=== PATIENT | female | born 1970 | race Caucasian/White ===

== ENCOUNTER → 2018-06-18 07:41 | Outpatient (CLI) | payer BC, SELFPAY ==
--- NOTE | 2018-06-18 07:46 | BI_ITS ---
MAMMOGRAPHY - BILATERAL SCREENING REASON FOR EXAM: Female, 47 years old. Routine annual screening examination. PERTINENT HISTORY: Non-contributory. TECHNIQUE: Digital bilateral breast deborah (3D mammographic acquisition) in the CC and MLO projections. 2-D mediolateral oblique (MLO) and craniocaudad (CC) views of both breasts were obtained. CAD: Full Field Digital Mammography with Computer Added Detection was performed. COMPARISON: Comparison is made with prior study dated May 14, 2017. FINDINGS: Breast Composition: The breasts are heterogeneously dense, which may obscure small masses. There are no dominant masses or suspicious calcifications. Stable small bilateral axillary lymph nodes. No other significant abnormalities are identified. There has been no significant change since the prior study. BI/SCREENING MAMM (CAD), BILAT IMPRESSION: Stable bilateral screening mammogram. Yearly follow-up mammogram recommended. (A) ASSESSMENT CATEGORY: BIRADS Category 2: Benign. A letter regarding these results will be sent to the patient by the facility within 30 days. Approximately 10% of breast cancers are not detected by mammography. A normal mammogram should not delay biopsy of a clinically suspicious abnormality. [id number] Electronically Signed: Alphonso Macdonald MD at 9:17 EST , Service support ,
== END ==
PROVIDERS: Referring Provider Nurse Practitioner Women's Health; Visit Provider Nurse Practitioner Women's Health
DX: Z12.31 Encounter for screening mammogram for malignant neoplasm of breast (principal)
CPT/HCPCS: 77063; 77067

== ENCOUNTER → 2019-06-30 08:03 | Outpatient (CLI) | payer BC, SELFPAY ==
[2018-06-24 13:24] VITALS: BMI 22.6
--- NOTE | 2019-06-30 08:04 | BI_ITS ---
MAMMOGRAPHY - BILATERAL SCREENING REASON FOR EXAM: Female, 48 years old. Routine annual screening examination. PERTINENT HISTORY: Non-contributory. TECHNIQUE: Digital bilateral breast suly (3D mammographic acquisition) in the CC and MLO projections. 2-D mediolateral oblique (MLO) and craniocaudad (CC) views of both breasts were obtained. CAD: Full Field Digital Mammography with Computer Added Detection was performed. COMPARISON: Comparison is made with prior examination dated June 18, 2018 and May 14, 2017. FINDINGS: Breast Composition: The breasts are heterogeneously dense, which may obscure small masses. There are no dominant masses or suspicious calcifications. No other significant abnormalities are identified. There has been no significant change since the prior study. BI/SCREEN MAMM (CAD) W/SULY BILAT IMPRESSION: Stable bilateral screening mammogram. Yearly follow-up mammogram recommended. (A) ASSESSMENT CATEGORY: BIRADS Category 1: Negative. A letter regarding these results will be sent to the patient by the facility within 30 days. Approximately 10% of breast cancers are not detected by mammography. A normal mammogram should not delay biopsy of a clinically suspicious abnormality. [id number] Electronically Signed: Alphonso Macdonald, at 9:27 EST , Service support ,
== END ==
PROVIDERS: PCP Family Medicine; Referring Provider Nurse Practitioner Women's Health; Visit Provider Nurse Practitioner Women's Health
DX: Z12.31 Encounter for screening mammogram for malignant neoplasm of breast (principal)
CPT/HCPCS: 77063; 77067

== ENCOUNTER → 2020-07-12 13:04 | Outpatient (CLI) | payer BC, SELFPAY ==
[2019-06-30 08:37] VITALS: BMI 22.6
--- NOTE | 2020-07-12 13:06 | BI_ITS ---
MAMMOGRAPHY - BILATERAL SCREENING REASON FOR EXAM: Female, 49 years old. Routine annual screening examination. PERTINENT HISTORY: Non-contributory. Occasional bilateral nipple tenderness and discharge. TECHNIQUE: Digital bilateral breast suly (3D mammographic acquisition) in the CC and MLO projections. 2-D mediolateral oblique (MLO) and craniocaudad (CC) views of both breasts were obtained. CAD: Full Field Digital Mammography with Computer Added Detection was performed. COMPARISON: Comparison is made with prior examination of 06/30/2019 and 06/18/2018. FINDINGS: Breast Composition: The breasts are heterogeneously dense, which may obscure small masses. There are no dominant masses or suspicious calcifications. Stable small benign appearing bilateral axillary lymph nodes. No other significant abnormalities are identified. There has been no significant change since the prior study. BI/SCRN MAMM (CAD)W/SULY BILAT IMPRESSION: Stable bilateral screening mammogram. Yearly follow-up mammogram recommended. (A) ASSESSMENT CATEGORY: BIRADS Category 2: Benign. A letter regarding these results will be sent to the patient by the facility within 30 days. Approximately 10% of breast cancers are not detected by mammography. A normal mammogram should not delay biopsy of a clinically suspicious abnormality. [id number] Electronically Signed: Alphonso Macdonald MD at 14:12 EST , Service support ,
== END ==
PROVIDERS: PCP Family Medicine; Referring Provider Nurse Practitioner Women's Health; Visit Provider Nurse Practitioner Women's Health
DX: Z12.31 Encounter for screening mammogram for malignant neoplasm of breast (principal)
CPT/HCPCS: 77063; 77067

== ENCOUNTER → 2021-04-19 | Outpatient (CLI) | payer BC, SELFPAY | END | disposition home or self-care (01) | LOC: LABSPEC 09:40 | PROVIDERS: PCP Family Medicine; Referring Provider Physician Assistant; Visit Provider Physician Assistant | DX: Z11.52 Encounter for screening for COVID-19 (principal) | CPT/HCPCS: 87635; U0005; U0003 ==

== ENCOUNTER → 2021-04-30 | Outpatient (CLI) | payer BC, SELFPAY | END | disposition home or self-care (01) | LOC: LABSPEC 10:04 | PROVIDERS: PCP Family Medicine; Visit Provider Physician Assistant Surgical | DX: U07.1 COVID-19 (principal) | CPT/HCPCS: 87635; U0005; U0003 ==

== ENCOUNTER 2021-07-18 10:14 | Outpatient (CLI) | payer BC, SELFPAY ==
--- NOTE | 2021-07-18 10:16 | BI_ITS ---
MAMMOGRAPHY - BILATERAL SCREENING REASON FOR EXAM: Female, 50 years old. Routine annual screening examination. PERTINENT HISTORY: Non-contributory. History of bilateral nipple discharge. TECHNIQUE: Digital bilateral breast suly (3D mammographic acquisition) in the CC and MLO projections. 2-D mediolateral oblique (MLO) and craniocaudad (CC) views of both breasts were obtained. CAD: Full Field Digital Mammography with Computer Added Detection was performed. COMPARISON: None. Baseline examination. FINDINGS: Breast Composition: The breasts are heterogeneously dense, which may obscure small masses. There are no dominant masses or suspicious calcifications. No other significant abnormalities are identified. BI/SCRN MAMM (CAD)W/SULY BILAT IMPRESSION: Negative screening mammogram. With the patient''s history of bilateral nipple discharge, targeted ultrasound of both retroareolar regions is recommended. ASSESSMENT CATEGORY: BIRADS Category 0: Incomplete. Need additional imaging evaluation. A letter regarding these results will be sent to the patient by the facility within 30 days. Approximately 10% of breast cancers are not detected by mammography. A normal mammogram should not delay biopsy of a clinically suspicious abnormality. [id number] Electronically Signed: Alphonso Macdonald MD at 11:07 EST ,
== END 2021-07-18 23:59 | disposition home or self-care (01) ==
LOC: OPBI 10:14
PROVIDERS: PCP Family Medicine; Visit Provider Nurse Practitioner Women's Health
DX: Z12.31 Encounter for screening mammogram for malignant neoplasm of breast (principal)
CPT/HCPCS: 77063; 77067

== ENCOUNTER 2021-07-25 14:03 | Outpatient (CLI) | payer BC, SELFPAY ==
--- NOTE | 2021-07-25 14:10 | US_ITS ---
STUDY: ULTRASOUND BREAST - RIGHT REASON FOR EXAM: Female, 50 years old. Nipple discharge TECHNIQUE: Axial and longitudinal images of the RIGHT breast were performed with a high resolution ultrasound transducer. # OF IMAGES: 44 COMPARISON: Screening mammogram 07/18/2021 FINDINGS: RIGHT Breast: Heterogeneous background echotexture. Multiple longitudinal and transverse ultrasound images of the retroareolar right breast failed to demonstrate a discrete solid or cystic mass or dilated ducts.: IMPRESSION: Normal right breast ultrasound. If nipple discharge is bloody, galactogram is indicated. ASSESSMENT CATEGORY: BIRADS Category 1: Negative. A letter regarding these results will be sent to the patient by the facility within 30 days. Electronically Signed: Tom Sanders MD at 16:23 EDT , STUDY: ULTRASOUND BREAST - LEFT REASON FOR EXAM: Female, 50 years old. Nipple discharge TECHNIQUE: Axial and longitudinal images of the LEFT breast were performed with a high resolution ultrasound transducer. # OF IMAGES: 44 COMPARISON: Screening mammogram 07/18/2021 FINDINGS: LEFT Breast: Heterogeneous background echotexture. Multiple additional transverse ultrasound images of the retroareolar left breast fail to demonstrate a discrete solid or cystic mass or dilated ducts.: US/Breast Limited Unilateral IMPRESSION: Normal left breast ultrasound. If nipple discharge is bloody, galactogram is indicated. ASSESSMENT CATEGORY: BIRADS Category 1: Negative. A letter regarding these results will be sent to the patient by the facility within 30 days. Electronically Signed: Tom Sanders MD at 16:23 EDT ,
== END 2021-07-25 23:59 | disposition home or self-care (01) ==
PROVIDERS: PCP Family Medicine; Referring Provider Obstetrics & Gynecology; Visit Provider Obstetrics & Gynecology
DX: N64.52 Nipple discharge (principal)
CPT/HCPCS: 76642

== ENCOUNTER 2021-07-30 07:43 | Outpatient (CLI) | payer BC, SELFPAY ==
[2021-07-30 07:56] LABS: Absolute Lymphocyte Count 1.93 X10^3/uL (0.83-4.51); Absolute Neutrophil Count 3.6 X10^3/uL (2.0-7.7); Basophil# 0.03 X10^3/uL; Basophil% 0.5 % (0-1); Eosinophil# 0.19 X10^3/uL; Eosinophils% 2.9 % (0-5); Hematocrit 41.1 % (37-47); Lymphocyte # 1.93 X10^3/ul (0.83-4.51); Lymphocyte % 29.8 % (19-41); Mean Corp Hgb Conc 34.1 g/dL (32-36); Mean Corpuscular Hgb 29.5 pg (27.0-32.0); Mean Corpuscular Volume 86.7 fL (81-99); Mean Platelet Vol. 9.3 fl (6.2-12.0); Monocyte# 0.68 X10^3/uL; Monocyte% 10.5 % (0-10); NRBC Flagged by Analyzer 0 % (0-5); Neutrophil # 3.63 X10^3/uL (2.7-7.7); Platelet Count 304 K/mm3 (150-450); RBC Distribution Width CV 12.8 % (11.6-14.6); RBC Distribution Width SD 40.7 fl (35.1-43.9); Red Blood Count 4.74 M/mm3 (4.2-5.4); White Blood Count 6.5 K/mm3 (4.4-11.0)
[2021-07-30 08:40] LABS: Cholesterol 225 mg/dL (200); Glucose 89 mg/dL (74-106); High Density Lipoprotein 75 mg/dL; Prolactin 15.2 ng/mL; Thyroid Stim Hormone (TSH) 3.47 uIU/mL (0.358-3.74); Triglycerides 138 mg/dL; Very Low Density Lipoprotein 28 mg/dL (5-40)
[2021-07-30 08:42] LABS: Vitamin D,25 Hydroxy 37.4 ng/mL
== END 2021-07-30 23:59 | disposition home or self-care (01) ==
PROVIDERS: PCP Family Medicine; Referring Provider Nurse Practitioner Women's Health; Visit Provider Nurse Practitioner Women's Health
DX: R53.83 Other fatigue (principal); Z13.1 Encounter for screening for diabetes mellitus; Z13.220 Encounter for screening for lipoid disorders; Z87.59 Personal history of other complications of pregnancy, childbirth and the puerperium; Z13.29 Encounter for screening for other suspected endocrine disorder; Z13.21 Encounter for screening for nutritional disorder
CPT/HCPCS: 36415; 80061; 82306; 82947; 84146; 84443; 85025

== ENCOUNTER → 2022-10-09 | Outpatient (CLI) | payer BC, SELFPAY ==
--- NOTE | 2022-10-09 07:52 | BI_ITS ---
MAMMOGRAPHY - BILATERAL SCREENING REASON FOR EXAM: Female, 52 years old. Routine annual screening examination. PERTINENT HISTORY: Non-contributory. TECHNIQUE: Digital bilateral breast suly (3D mammographic acquisition) in the CC and MLO projections. 2-D mediolateral oblique (MLO) and craniocaudad (CC) views of both breasts were obtained. CAD: Full Field Digital Mammography with Computer Added Detection was performed. COMPARISON: Comparison is made with prior study dated July 18, 2021 and July 12, 2020. FINDINGS: Breast Composition: There are scattered areas of fibroglandular density. There are no dominant masses or suspicious calcifications. Stable small benign-appearing bilateral axillary lymph nodes. No other significant abnormalities are identified. There has been no significant change since the prior study. BI/SCRN MAMM (CAD)W/SULY BILAT IMPRESSION: Stable bilateral screening mammogram. Yearly follow-up mammogram recommended. (A) ASSESSMENT CATEGORY: BIRADS Category 2: Benign. A letter regarding these results will be sent to the patient by the facility within 30 days. Approximately 10% of breast cancers are not detected by mammography. A normal mammogram should not delay biopsy of a clinically suspicious abnormality. [id number] Electronically Signed: Alphonso Macdonald MD at 9:55 EDT ,
== END | disposition home or self-care (01) ==
LOC: OPBI 07:49
PROVIDERS: PCP Family Medicine; Referring Provider Nurse Practitioner Women's Health; Visit Provider Nurse Practitioner Women's Health
DX: Z12.31 Encounter for screening mammogram for malignant neoplasm of breast (principal)
CPT/HCPCS: 77063; 77067

== ENCOUNTER → 2022-11-20 | Outpatient (CLI) | payer BC, SELFPAY ==
[2022-11-22 22:07] LABS: HPV APTIMA, High Risk Negative (Negative)
== END | disposition home or self-care (01) ==
LOC: LABSPEC 11:29
PROVIDERS: PCP Family Medicine; Referring Provider Nurse Practitioner Women's Health; Visit Provider Nurse Practitioner Women's Health
DX: Z12.4 Encounter for screening for malignant neoplasm of cervix (principal)
CPT/HCPCS: 87624; 88175; G0145

== ENCOUNTER → 2022-11-25 | Outpatient (CLI) | payer BC, SELFPAY ==
[2022-11-25 09:01] LABS: Cholesterol 192 mg/dL (200); Estradiol < 11.0 pg/mL; Follicle Stimulating Hormone 44.2 mIU/mL; Glucose 92 mg/dL (74-106); High Density Lipoprotein 78 mg/dL; Thyroid Stim Hormone (TSH) 1.64 uIU/mL (0.358-3.74); Triglycerides 89 mg/dL; Very Low Density Lipoprotein 18 mg/dL (5-40)
== END | disposition home or self-care (01) ==
PROVIDERS: PCP Family Medicine; Referring Provider Nurse Practitioner Women's Health; Visit Provider Nurse Practitioner Women's Health
DX: N93.9 Abnormal uterine and vaginal bleeding, unspecified (principal); Z13.21 Encounter for screening for nutritional disorder; Z13.1 Encounter for screening for diabetes mellitus; Z13.29 Encounter for screening for other suspected endocrine disorder; Z13.220 Encounter for screening for lipoid disorders
CPT/HCPCS: 36415; 80061; 82306; 82670; 82947; 83001; 84443

== ENCOUNTER → 2023-11-28 | Outpatient (CLI) | payer BC, SELFPAY ==
--- NOTE | 2023-11-28 10:16 | BI_ITS ---
MAMMOGRAPHY - BILATERAL SCREENING REASON FOR EXAM: Female, 53 years old. Routine annual screening examination. PERTINENT HISTORY: Non-contributory. TECHNIQUE: Digital bilateral breast suly (3D mammographic acquisition) in the CC and MLO projections. 2-D mediolateral oblique (MLO) and craniocaudad (CC) views of both breasts were obtained. CAD: Full Field Digital Mammography with Computer Added Detection was performed. COMPARISON: Comparison is made with prior study dated October 09, 2022 and July 18, 2021. FINDINGS: Breast Composition: There are scattered areas of fibroglandular density. There are no dominant masses or suspicious calcifications. No other significant abnormalities are identified. There has been no significant change since the prior study. BI/SCRN MAMM (CAD)W/SULY BILAT IMPRESSION: Stable bilateral screening mammogram. Yearly follow-up mammogram recommended. (A) ASSESSMENT CATEGORY: BIRADS Category 1: Negative. A letter regarding these results will be sent to the patient by the facility within 30 days. Approximately 10% of breast cancers are not detected by mammography. A normal mammogram should not delay biopsy of a clinically suspicious abnormality. [id number] Electronically Signed: Alphonso Macdonald MD at 11:04 EDT ,
== END | disposition home or self-care (01) ==
LOC: OPBI 10:15
PROVIDERS: PCP Family Medicine; Referring Provider Nurse Practitioner Women's Health; Visit Provider Nurse Practitioner Women's Health
DX: Z12.31 Encounter for screening mammogram for malignant neoplasm of breast (principal)
CPT/HCPCS: 77063; 77067

== ENCOUNTER → 2023-12-23 | Outpatient (CLI) | payer BC, SELFPAY ==
[2023-12-23 12:12] LABS: Estradiol < 11.0 pg/mL; Follicle Stimulating Hormone 44.5 mIU/mL
== END | disposition home or self-care (01) ==
LOC: PAVLAB 09:20
PROVIDERS: PCP Family Medicine; Referring Provider Nurse Practitioner Women's Health; Visit Provider Nurse Practitioner Women's Health
DX: N95.1 Menopausal and female climacteric states (principal)
CPT/HCPCS: 36415; 82670; 83001

== ENCOUNTER → 2024-11-29 | Outpatient (CLI) | payer BC, SELFPAY ==
--- NOTE | 2024-11-29 07:30 | BI_ITS ---
EXAM: SCRN MAMM (CAD)W/SULY BILAT DATE: 11/29/2024 CLINICAL HISTORY: F, Age 54 y/o , SCREENING FOR BREAST CANCER TECHNIQUE: SCRN MAMM (CAD)W/SULY BILAT COMPARISON: Prior exam(s) dated 11/28/2023 and 10/09/2022. FINDINGS: TISSUE DENSITY: There are scattered areas of fibroglandular density. Bilateral Breast Mammographic Findings: There are no suspicious masses, suspicious cluster of microcalcifications, architectural distortion or secondary signs of malignancy identified in either breast. BI/SCRN MAMM (CAD)W/SULY BILAT IMPRESSION: Negative screening mammogram. OVERALL FINAL ASSESSMENT BI-RADS 1: NEGATIVE. RECOMMENDATION: Routine annual follow-up in 1 Year A letter with findings and recommendations will be mailed to the patient. Reading Location: [id number]
--- OUTSIDE RECORDS SUMMARY | 2024-11-29 07:31 | XMS RPT_ITS | CCD ---
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 Calixto Dexter Primary Care Provider [phone] Dr. Calixto Dexter Referring Provider Dr. Uriel Vila Attending Provider [phone] Eyal LEAD PONY RIDER, LEAD PONY RIDER-C Shu Attending Provider 1[facility] [phone] Un[address] Primary Care Provider Dr. Calixto Campos Primary Care Provider [phone] Dr. Calixto Dexter Referring Provider Eyal LEAD PONY RIDER, LEAD PONY RIDER-C Shu Attending Provider [phone] Unavailable Primary Care Provider Len Birch LEAD PONY RIDER, Shu Attending Unavailable Calixto Dexter Referring Unavailable Calixto Dexter Primary Care Unavailable Eyal LEAD PONY RIDER, Shu Attending Unavailable Calixto Dexter Primary Care Unavailable Eyal LEAD PONY RIDERShu Referring Unavailable Eyal LEAD PONY RIDER, Shu Referring Unavailable Eyal LEAD PONY RIDER, Shu Attending Unavailable Calixto Dexter Primary Care Unavailable Medications Current Medications Medication Drug Class(es) Dates Sig (Normalized) Sig (Original) Desog-E.Estradiol/ E.Estradiol (20 sources) Progestin, Estrogen Start: 09-25-2022 take 0.15 tablet by mouth once daily Desog-E.Estradiol /E.Estradiol (Kariva (28)) 0.15-0.02 mgx21 /0.01 mg x 5 tablet Active 1 TABLET PO daily September 25, 2022 9:39am Start: 07-26-2021 End: 09-25-2022 take 0.15 tablet by mouth once daily Desog-E.Estradiol/E.Estradiol (Kariva (2 8)) 0.15-0.02 mgx21 /0.01 mg x 5 tablet Discontinued 1 TABLET PO daily July 26, 2021 8:27am September 25, 2022 9:39am Start: 07-26-2021 take 0.15 tablet by mouth once daily Desog-E.Estradiol/E.Estradiol (Kariva (2 8)) 0.15-0.02 mgx21 /0.01 mg x 5 tablet Active 1 TABLET PO daily July 26, 2021 8:27am Start: 07-12-2020 End: 07-26-2021 take 0.15 tablet by mouth once daily Desog-E.Estradiol/E.Estradiol (Kariva (2 8)) 0.15-0.02 mgx21 /0.01 mg x 5 tablet Discontinued 1 TABLET PO daily July 12, 2020 3:01pm July 26, 2021 8:27am Start: 06-30-2019 End: 07-12-2020 take 0.15 tablet by mouth once daily Desog-E.Estradiol/E.Estradiol (Kariva (2 8)) 0.15-0.02 mgx21 /0.01 mg x 5 tablet Discontinued 1 TABLET PO daily June 30, 2019 9:54am July 12, 2020 3:01pm Start: 06-24-2018 End: 06-30-2019 take 0.15 tablet by mouth once daily Desog-E.Estradiol/E.Estradiol (Kariva (2 8)) 0.15-0.02 mgx21 /0.01 mg x 5 tablet Discontinued 1 TABLET PO daily June 24, 2018 2:26pm June 30, 2019 9:54am Start: 06-11-2017 End: 06-24-2018 take 0.15 tablet by mouth once daily Desog-E.Estradiol/E.Estradiol (Kariva (2 8)) 0.15-0.02 mgx21 /0.01 mg x 5 tablet Discontinued 1 TABLET PO daily June 11, 2017 12:59pm June 24, 2018 2:27pm Start: 05-21-2017 End: 06-11-2017 take 0.15 tablet by mouth once daily Desog-E.Estradiol/E.Estradiol (Kariva (2 8)) 0.15-0.02 mgx21 /0.01 mg x 5 tablet Discontinued 1 TABLET PO daily 84 May 21, 2017 12:11pm June 11, 2017 12:59pm Start: 05-21-2017 End: 05-21-2017 take 0.15 tablet by mouth once daily Desog-E.Estradiol/E.Estradiol (Kariva (2 8)) 0.15-0.02 mgx21 /0.01 mg x 5 tablet Discontinued 1 TABLET PO daily May 21, 2017 11:58am May 21, 2017 12:12pm Start: 05-21-2017 End: 05-21-2017 take 0.15 tablet by mouth once daily Desog-E.Estradiol/E.Estradiol (Kariva (2 8)) 0.15-0.02 mgx21 /0.01 mg x 5 tablet Discontinued 1 TABLET PO daily May 21, 2017 1:00am May 21, 2017 12:12pm Start: 03-27-2016 take 1 tablet by choco once daily Desogestrel-Ethinyl Estradiol 0.15-0.02 mgx21 /0.01 mg x 5 per tablet Indications: General counseling for prescription of oral contraceptives Take 1 tablet by mouth once daily. 3 Package 4 03/27/2016 Active Comment on above: Take 1 tablet by choco th once daily. doxycycline monohydrate 100 mg oral capsule (2 sources) Tetracycline-class Drug Start: 05-28-19 take 1 capsule by mouth twice daily at mealtime doxycycline monohydrate (MONODOX) 100 mg capsule take 1 capsule by mouth twice a day with food 05/28/2023 Active mupirocin 0.02 mg/mg topical ointment (1 source) RNA Synthetase Inhibitor Antibacterial Start: 07-06-19 End: 07-17-19 mupirocin (BACTROBAN) 2 % ointment Indications: Rash Apply to affected area twice daily for 10 days. 15 g 0 07/06/2022 07/16/2022 Active Comment on above: Apply to affected ar ea twice daily for 10 days. predniSONE 10 mg oral tablet (3 sources) Start: 09-13-19 predniSONE (DELTASONE) 10 mg tablet Indications: Poison liam dermatitis Take 4 tabs daily x5 days, then 2 tabs daily for 5 days, then 1 tab daily for 5 days. 35 tablet 09/13/2023 Active Start: 09-16-2022 End: 09-21-2022 take 2 tablets by mouth once daily predniSONE (DELTASONE) 20 mg tablet Take 2 tablets by mouth once daily for 5 days. 10 tablet 0 09/16/2022 09/21/2022 Active Comment on above: Take 2 tablets by mo ut once daily for 5 days. Completed/Discontinued Medications Medication Drug Class(es) Dates Sig (Normalized) Sig (Original) Drug Treatment Unknown - unknown (2 sources) No information available. Problems Active Problems Problem Classification Problem Date Documented Date Episodic/Chronic E Codes: Fall (1 source) Fall; Translations: [Unspecified fall, initial encounter] 03-26-2021 Episodic Menopausal disorders (1 source) Menopausal and female climacteric states; Translations: [Menopausal and female climacteric states] Onset: 01-19-2024 Chronic Menstrual disorders (4 sources) Menometrorrhagia; Translations: [Excessive and frequent menstruation with irregular cycle] Chronic Other female genital disorders (2 sources) Abnormal uterine and vaginal bleeding, unspecified; Translations: [Unspecified disorders of menstruation and other abnormal bleeding from female genital tract] 11-20-2022 Chronic Other screening for suspected conditions (not mental disorders or infectious disease) (1 source) Encounter for screening mammogram for malignant neoplasm of breast; Translations: [Encounter for screening mammogram for malignant neoplasm of breast] Onset: 11-25-2024 Episodic Other skin disorders (1 source) Eruption; Translations: [Rash and other nonspecific skin eruption] Episodic Other upper respiratory infections (4 sources) Sore throat symptom; Translations: [Acute pharyngitis, unspecified] Episodic Residual codes; unclassified (3 sources) H/O: endocrine disorder; Translations: [Personal history of other complications of , childbirth and the puerperium] 07-26-2021 Episodic Residual codes; unclassified (1 source) Personal history of other complications of , childbirth and the puerperium; Translations: [Personal history of other endocrine, metabolic, and immunity disorders] Episodic Spondylosis; intervertebral disc disorders; other back problems (1 source) Pain in the coccyx; Translations: [Sacrococcygeal disorders, not elsewhere classified] 03-26-2021 Episodic Unclassified (2 sources) Screening mammography ; Translations: [Encounter for screening mammogram for malignant neoplasm of breast] Onset: 04-07-2017 04-07-2017 Past or Other Problems Problem Classification Problem Date Documented Da te Episodic/Chronic Allergic reactions (6 sources) Radiation-induced dermatosis; Translations: [Other skin changes due to chronic exposure to nonionizing radiation] Onset: 10-30-2006 10-30-2006 Episodic Neoplasms of unspecified nature or uncertain behavior (5 sources) Neoplasm of uncertain behavior of skin; Translations: [Neoplasm of uncertain behavior of skin] Onset: 10-30-2006 10-30-2006 Episodic Other and unspecified benign neoplasm (5 sources) Benign neoplasm of skin of trunk; Translations: [Other benign neoplasm of skin of trunk] Onset: 10-30-2006 10-30-2006 Episodic Other skin disorders (5 sources) Disorder of skin pigmentation; Translations: [Disorder of pigmentation, unspecified] Onset: 10-30-2006 10-30-2006 Episodic Other skin disorders (5 sources) Seborrheic keratosis; Translations: [Other seborrheic keratosis] Onset: 10-30-2006 10-30-2006 Episodic Results Test Name Value Interpretation Reference Range Facility [facility] 03-04-2024 CNOV Office Visit (UCWSTR) PHILIPROSETTA L ([id number]) 1970 F Date Time Provider Department 03/04/24 11:30 AM MO NIÑO [facility] During your visit today, we recorded the following information about you: Temperature Pulse Respiration Blood pressure 97.6 degrees 100/minute 18/minute 130/90 Weight 61.8 kg Mo Niño APRN.CNP 03/04/2024 12:06 PM Signed SUBJECTIVE: Rosetta Palacios is a 53 year old female. Who presents today with sore throat body fatigue aches congestion started on Friday. She has not had a fever. She has taken mucinex and tylenol for the symptoms. She has not been exposed to anyone who is sick. She would like strep testing today. She has declined viral testing today as last time she received a large bill from her insurance HPI PAST MEDICAL HISTORY Diagnosis Date Abnormal glandular Papanicolaou smear of cervix 1993, 1994 ASCUS FAMILY HISTORY Problem Relation Age of Onset Hypertension Mother Thyroid Mother Diabetes Mother other (aortic aneurysn) Mother other (diverticulitis) Mother removed part of colon Hypertension Brother Stroke Maternal Grandmother brain aneurysm Hypertension Maternal Grandfather Social History Tobacco Use Smoking status: Never Smokeless tobacco: Never Substance Use Topics Alcohol use: No Drug use: No ALLERGIES No Known Allergies Current Outpatient Medications Medication Sig Dispense Refill Desogestrel-Ethinyl Estradiol 0.15-0.02 mgx21 /0.01 mg x 5 per tablet Take 1 tablet by mouth once daily. 3 Package 4 predniSONE (DELTASONE) 10 mg tablet Take 4 tabs daily x5 days, then 2 tabs daily for 5 days, then 1 tab daily for 5 days. (Patient not taking: Reported on 03/04/2024) 35 tablet 0 doxycycline monohydrate (MONODOX) 100 mg capsule take 1 capsule by mouth twice a day with food (Patient not taking: Reported on 03/04/2024) No current facility-administere d medications for this visit. OBJECTIVE: BP 130/90 Pulse 100 Temp 36.4 ?C (97.6 ?F) Resp 18 Wt 61.8 kg (136 lb 3.9 oz) LMP 07/30/2023 (Exact Date) SpO2 99% BMI 22.33 kg/m? ROS: All systems reviewed and are otherwise negative Constitutional: Well developed, well nourished, AANDO X3. ENT: Head is atraumatic, airway patent, mucosal membranes moist, pink, no exudate, no peritonsillar abscess, mercedes TM clear with no signs of infection Neck: full ROM, no meningeal signs Cardiac: heart tones regular rate and rhythm Respiratory: lung CTA respiration even and unlabored : no CVA tenderness MS: moves all extremities, no deformities noted Neuro: GCS 15 no focal deficits Skin: warm and dry with out rash, lesion or ecchymosis on exposed skin Psych: alert appropriate, speech clear Diagnostic testing: Strep testing Differential Diagnosis Strep Throat, Viral Pharyngitis, Peritonsillar Abscess, meningitis, bacterial pneumonia, sinusitis, allergic rhinitis, and bronchitis to name a few. MDM: Patient presented to the [facility] today for strep testing. A strep test was obtained and was NEGATIVE. Rosetta Palacios will be treated for viral pharyngitis. As this is not a bacterial infection, antibiotics are not indicated. At this time I do not suspect a serious underlying emergent process. I considered, but think unlikely, dangerous causes of this patient?s symptoms to include Peritonsillar abscess and meningitis. Patient is nontoxic appearing and not in need of emergent medical intervention. Vital signs were evaluated and found to be within normal limits. We have discussed over the counter medications to use for their symptoms. They may take Motrin and Tylenol for pain, body aches and fever. They will follow-up with their family doctor in the next 2-3 days. If symptoms worsen they will go straight to the emergency department for further evaluation and treatment. They voiced understanding of the plan of care and are in agreement. ASSESSMENT/PLAN: 1. Sore throat - ICD9: 462, ICD10: J02.9 (primary diagnosis) - STREP A MOLECULAR (POC) 2. Viral pharyngitis - ICD9: 462, ICD10: J02.9 Mo Niño APRN.BUILD MANAGER Allergies As of Date: 03/04/2024 (No Known Allergies) Date Reviewed: 03/04/2024 Reviewed by: Ladonna Salazar MA - Fully Assessed Reason for Visit: Sore Throat [200] Cmt: Bodyaches, SAUCEDA, cough x4 days Primary Visit Diagnosis:Sore throat [J02.9] Other Visit Diagnosis:Viral pharyngitis [J02.9] Order(s):STREP A MOLECULAR (POC) [[id number]] Order #: [id number]. #:[id number] Prescriptions as of 03/04/2024 - predniSONE (DELTASONE) 10 mg tablet Take 4 tabs daily x5 days, then 2 tabs daily for 5 days, then 1 tab daily for 5 days. - doxycycline monohydrate (MONODOX) 100 mg capsule take 1 capsule by mouth twice a day with food - Desogestrel-Ethinyl Estradiol 0.15-0.02 mgx21 /0.01 mg x 5 per tablet Take 1 table (more content not included)... Normal [facility] STREP A MOLECULAR (POC)on Procedural Control Valid [facility] Strep A (POCT) Negative Negative [facility] Estradiolon 12-23-2023 ESTRADIOL < 11.0 Normal [facility] Comment on above: Result Comment: NORM AL REFERENCE RANGES FEMALE FOLLICULAR 21.4 - 164.8 pg/mL MID-CYCLE PEAK 49.9 - 367.2 pg/mL LUTEAL 40.2 - 259.0 pg/mL POST-MENOPAUSAL ON MHT <11.0 - 462.1 pg/mL NOT ON MHT <11.0 - 58.3 pg/mL MALE <11.0 - 52.5 pg/mL NOTE: [facility] HAS CONFIRMED THE DRUG FULVETRANT (FASLODEX) MAY CAUSE FALSELY ELEVATED ESTRADIOL RESULTS WHEN USING THIS TEST METHOD. IF PATIENT IS TAKING FULVESTRANT AN ALTERNATIVE METHOD SHOULD BE USED TO DETERMINE ESTRADIOL CONCENTRATION. Performed By: #### L 3100.5125, [id number] #### [facility] [address] [place], [place], [address] Follicle Stimulating Hormone on 12-23-2023 FSH 44.5 mIU/mL Normal [facility] Comment on above: Result Comment: NORMAL REFERENCE RANGES FEMALE FOLLICULAR 2.3 - 12.6 mIU/mL MID-CYCLE PEAK 5.2 - 17.5 mIU/mL LUTEAL 1.7 - 12.9 mIU/mL POST-MENOPAUSAL ON MHT 5.9 - 72.8 mIU/mL NOT ON MHT 12.7 - 132.2 mlU/mL MALE 0.7 - 10.8 mIU/mL Performed By: #### L 3100.5125, [id number] #### [facility] [address] [place], [place], [address] Resident Surgeon Office Visit Reporton 12-02-2023 Resident Surgeon Office Visit Report [facility] 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 Required: No Is patient in pain?: No Allergies No Known Allergies Allergy (Verified 12/02/23 09:13) Medications ???Medication ???Instructions ???Recorded ???Confirmed ???Type desogestrel-e.estrad iol 0.15 1 tab PO DAILY #84 TABLETS 11/20/23 12/02/23 Rx mg-0.02 mg(21)/e.estrad 0.01 mg(5) tablet (Kariva (28)) Is last menstrual period known: Yes Last Menstrual Period: 11/20/23 Post menopausal: No Patient : No : No [facility] Medical History (Updated 12/02/23 @ 10:03 by Shu Birch NP, TORIE) History of galactorrhea Atypical nevus Abnormal Pap smear of cervix FHx: migraine headaches Surgical History H/O knee surgery Family History Mother Diabetes Social History current occupational status: employed 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 Date Name GA/Weeks Outcome Route Bth Weight Gen Labor Lgth Anesthesia Del Locatn Provider JOSE ROBERTO Unknown 03/05/1992 Juan Jose Female [facility] brown Unknown 09/03/1996 Mike [facility] Male Unknown 01/03/2005 [facility] Female HPI Encounter for routine gynecological examination Details: ROSETTA PALACIOS is a 53 year old who presents for annual exam. Light spotting occasionally with OCP. Labs were not postmenopausal last year. Last PAP: 2022 History of abnormal PAP: no Last mammogram: 11/2023 History of abnormal mammogram: no Colon cancer screening: none Female Reproductive History Last Menstrual Period: 11/20/23 Questions: metorrhagia: No, sexually active: Yes, dyspareunia: No and PCB: No ROS Const Constitutional: Denies fatigue, weight gain or weight loss Cardio Card: Denies chest pain Resp Resp: Denies cough or dyspnea on exertion GI GI: Denies abdominal pain, bloating, change in stool character, constipation or vomiting : Reports as per HPI; Denies difficulty voiding, pelvic pain, urinary frequency, urinary incontinence, urinary urgency, vaginal discharge or vaginal pruritus Exam Const General: cooperative, healthy appearing, no acute distress and well developed Orientation: alert, oriented to person and oriented to place HENTX Head: normal to inspection Neck Neck: normal visual inspection Thyroid: thyroid normal Lymphatic: no lymphadenopathy noted Chest Breast inspection: normal inspection of the breasts and normal inspection of the axillae Breast palpation: normal palpation of the breasts, normal palpation of the axillae and no axillary lymphadenopathy Resp Effort Inspection: normal respiratory effort GI Palpation: soft, no masses and nontender Rectal Exam: deferred External Female Exam: normal external appearance and normal appearance of the urethra Urethra: normal appearance of the urethra and normal palpation Speculum Exam - Vagina: normal appearance of the vagina and normal vaginal discharge Speculum Exam - Cervix: normal appearance of the cervix Bimanual Exam- Vagina Uterus: normal bimanual exam, uterine size normal, uterine shape normal and non-tender Bimanual Exam- Adnexa, other: normal adnexae, no masses, normal and non-tender Pelvic Support: normal Neuro General: patient alert and patient oriented x3 Psych Affect: normal affect Coding Level of Care Code Off vis,est,prev 40-64yrs Diagnoses Encounter for gynecological examination with abnormal finding Z01.411 Gynecological examination findings: abnormal findings PRESENT Climacteric N95.1 Assessment and Plan Assessment and Plan (1) Encounter for routine gynecological examination: Qualifiers: Gynecological examination findings: abnormal findings PRESENT Qualified Code(s) (more content not included)... Normal [facility] CNOVon 09-13-2023 CNOV Office Visit (UCWSTR) ROSETTA PALACIOS ([id number]) 1970 F Date Time Provider Department 09/13/23 9:45 AM KATIE VELEZ WS During your visit today, we recorded the following information about you: Temperature Pulse Respiration Blood pressure 97.4 degrees 87/minute 18/minute 122/89 Weight 59.7 kg Katie Velez, RN PARALEGAL.BUILD MANAGER 09/13/2023 9:59 AM Signed This note was created using [employer]. Subjective Rosetta Palacios is a 53 year old female. HPI Pt developed a vesiclular rash that started about 5 days ago. She had been outside working in the [employer]. Review of Systems Constitutional: Negative for fatigue and fever. Skin: Positive for rash. Objective BP 122/89 Pulse 87 Temp 36.3 ?C (97.4 ?F) Resp 18 Wt 59.7 kg (131 lb 9.8 oz) LMP 07/30/2023 (Exact Date) SpO2 99% BMI 21.57 kg/m? Physical Exam Vitals and nursing note reviewed. Constitutional: General: She is not in acute distress. Appearance: Normal appearance. She is not ill-appearing. HENT: Head: Normocephalic. Eyes: Conjunctiva/sclera: Conjunctivae normal. Pulmonary: Effort: Pulmonary effort is normal. Musculoskeletal: General: Normal range of motion. Cervical back: Normal range of motion. Skin: General: Skin is warm and dry. Findings: Rash present. Comments: Scattered vesicular rash across the palmar aspect of the left forearm and palmar aspect of right wrist. Rash is not erythematous. Neurological: General: No focal deficit present. Mental Status: She is alert. Psychiatric: Mood and Affect: Mood normal. Behavior: Behavior normal. Assessment and Plan ASSESSMENT/PLAN: 1. Poison liam dermatitis - ICD9: 692.6, ICD10: L23.7 - Oral Steriod tx -Prednisone taper - discussed skin care of rash - follow up if symptoms persist or worsen. -Discussed the importance of thoroughly cleaning all clothing that she was wearing while working out in the [employer]. -Patient given a 15-day taper of prednisone. - PREDNISONE 10 MG TABLET Katie Velez APRN.CNP Allergies As of Date: 09/13/2023 (No Known Allergies) Date Reviewed: 09/13/2023 Reviewed by: Katie Velez APRN.CNP - Fully Assessed Reason for Visit: Rash [1087] Cmt: Widespread x4 days, possible poison liam Primary Visit Diagnosis:Poison liam dermatitis [L23.7] Order(s):predniSONE (DELTASONE) 10 mg tabletTake 4 tabs daily x5 days, then 2 tabs daily for 5 days, then 1 tab daily for 5 days.Disp: 35 tabletRfl: 0 Prescriptions as of 09/13/2023 - predniSONE (DELTASONE) 10 mg tablet Take 4 tabs daily x5 days, then 2 tabs daily for 5 days, then 1 tab daily for 5 days. - doxycycline monohydrate (MONODOX) 100 mg capsule take 1 capsule by mouth twice a day with food - Desogestrel-Ethinyl Estradiol 0.15-0.02 mgx21 /0.01 mg x 5 per tablet Take 1 tablet by mouth once daily. Problem List As Of Date 09/13/2023 Noted Resolved UNCERTAIN BEHAV NEOPL SKIN [D48.5] 10/30/2006 BENIGN HERACLIO SKIN TRUNK [D23.5] 10/30/2006 MELASMA///DYSCHROMIA OTHER [L81.9] 10/30/2006 CHR SOLAR SKIN DAMAGE NOS [L57.8] 10/30/2006 SEBORRHEIC KERATOSIS NOS [L82.1] 10/30/2006 Prescriptions ordered this encounter Disp Refills Start End PREDNISONE 10 MG TABLET 35 t* 0 09/13/2023 Sig: Take 4 tabs daily x5 days, then 2 tabs daily for 5 days, then 1 tab daily for 5 days. Encounter Status:Closed by KATIE VELEZ on 09/13/23 Normal [facility] CNOVon 08-07-2023 CNOV Office Visit (UCWSTR) ROSETTA PALACIOS ([id number]) 1970 F Date Time Provider Department 08/07/23 10:15 AM JERED BAXTER [facility] During your visit today, we recorded the following information about you: Temperature Pulse Respiration Blood pressure 98.5 degrees 105/minute 18/minute 120/83 Weight Last Period 57 kg 07/30/23 Jered Baxter APRN.BUILD MANAGER 08/07/2023 12:35 PM Signed Subjective HPI HPI Rosetta Palacios is a 52 year old female who presents today for CC of itchy tender rash on back. This started 2 weeks ago. Has tried otc medication for relief. Symptoms are worsened by nothing. Risk factors has hottub, does not use frequently but was in recently. Denies uri symptoms. .Patient presents with: Rash: On back x 1 week and worsening small red bumps all over PAST MEDICAL HISTORY Diagnosis Date Abnormal glandular Papanicolaou smear of cervix 1993, 1994 ASCUS PAST SURGICAL HISTORY Procedure Laterality Date ARTHROSCOPY KNEE DIAGNOSTIC W/WO SYNOVIAL BX SPX 2005 Arthroscopy, knee PAST SURGICAL HISTORY OF WISDOM TEETH EXTRACTION ALLERGIES Patient has no known allergies. MEDICATIONS doxycycline monohydrate (MONODOX) 100 mg capsule take 1 capsule by mouth twice a day with food Desogestrel-Ethinyl Estradiol 0.15-0.02 mgx21 /0.01 mg x 5 per tablet Take 1 tablet by mouth once daily. predniSONE (DELTASONE) 10 mg tablet Take 4 tabs daily for 3 days, then 2 tabs daily for 3 days, then 1 tab daily for 3 days with food. triamcinolone acetonide (KENALOG) 0.1 % cream Apply 1 application to affected area three times a day for 10 days. Apply sparingly to area for rash/itching. cephALEXin (KEFLEX) 500 mg capsule Take 1 capsule by mouth three times a day for 7 days. FAMILY HISTORY Problem Relation Age of Onset Hypertension Mother Thyroid Mother Diabetes Mother other (aortic aneurysn) Mother other (diverticulitis) Mother removed part of colon Hypertension Brother Stroke Maternal Grandmother brain aneurysm Hypertension Maternal Grandfather Social History Tobacco Use Smoking status: Never Smokeless tobacco: Never Substance Use Topics Alcohol use: No Drug use: No ROS Objective Blood pressure 120/83, pulse 105, temperature 36.9 ?C (98.5 ?F), resp. rate 18, weight 57 kg (125 lb 10.6 oz), last menstrual period 07/30/2023, SpO2 100%. Physical Exam Constitutional: General: She is not in acute distress. Appearance: She is not toxic-appearing or diaphoretic. HENT: Head: Normocephalic and atraumatic. Pulmonary: Effort: Pulmonary effort is normal. No accessory muscle usage or respiratory distress. Skin: Neurological: Mental Status: She is alert and oriented to person, place, and time. ASSESSMENT/PLAN: 1. Rash - ICD9: 782.1, ICD10: R21 Unclear etiology, cover with steroid and atb F/u with dermatology if s/s persist. - PREDNISONE 10 MG TABLET - TRIAMCINOLONE ACETONIDE 0.1 % TOPICAL CREAM - CEPHALEXIN 500 MG CAPSULE Jered Baxter APRN.BUILD MANAGER Allergies As of Date: 08/07/2023 (No Known Allergies) Date Reviewed: 08/07/2023 Reviewed by: Jered Baxter APRN.BUILD MANAGER - Fully Assessed Reason for Visit: Rash [1087] Cmt: On back x 1 week and worsening small red bumps all over Primary Visit Diagnosis:Rash [R21] Order(s):predniSONE (DELTASONE) 10 mg tabletTake 4 tabs daily for 3 days, then 2 tabs daily for 3 days, then 1 tab daily for 3 days with food.Disp: 21 tabletRfl: 0 triamcinolone acetonide (KENALOG) 0.1 % creamApply 1 application to affected area three times a day for 10 days. Apply sparingly to area for rash/itching.Disp: 80 gRfl: 0 cephALEXin (KEFLEX) 500 mg capsuleTake 1 capsule by mouth three times a day for 7 days.Disp: 21 capsuleRfl: 0 Prescriptions as of 08/07/2023 - doxycycline monohydrate (MONODOX) 100 mg capsule take 1 capsule by mouth twice a day with food - predniSONE (DELTASONE) 10 mg tablet Take 4 tabs daily for 3 days, then 2 tabs daily for 3 days, then 1 tab daily for 3 days with food. - triamcinolone acetonide (KENALOG) 0.1 % cream Apply 1 application to affected area three times a day for 10 days. Apply sparingly to area for rash/itching. - cephALEXin (KEFLEX) 500 mg capsule Take 1 capsule by mouth three times a day for 7 days. - Desogestrel-Ethinyl Estradiol 0.15-0.02 mgx21 /0.01 mg x 5 per tablet Take 1 tablet by mouth once daily. 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 Normal [facility] Small Basophil percentageOrdered B y: Shu Birch on 11-25-2022 Cholesterol [Mass/Vol] 192 mg/dL <200 [facility] Comment on above: <200 mg/dL Desirable 200-240 mg/dL Borderline >240 mg/dL High Risk Glucose [Mass/Vol] 92 mg/dL 74-106 [facility] Triglyceride [Mass/Vol] 89 mg/dL <199 [facility] Comment on above: The drugs N-Acetylcy steine and Metamizole may falsely depress this assay.Serum Triglycerides Reference Interval Normal <150 mg/dL Borderline high 150 - 199 mg/dL High 200 - 499 mg/dL Very High > or = 500 mg/dL No Panel InformationOrdered By: Shu Birch on 11-25-2022 Follicle Stimulating Hormone 44.2 mIU/mL [facility] Comment on above: NORMAL REFERENCE RAN GES FEMALE FOLLICULAR 2.3 - 12.6 mIU/mL MID-CYCLE PEAK 5.2 - 17.5 mIU/mL LUTEAL 1.7 - 12.9 mIU/mL POST-MENOPAUSAL ON MHT 5.9 - 72.8 mIU/mL NOT ON MHT 12.7 - 132.2 mlU/mL MALE 0.7 - 10.8 mIU/mL Thyroid Stimulating Hormone (TSH) 1.64 uIU/mL 0.358-3.74 [facility] Vitamin D 25-Hydroxy 58.0 ng/mL [facility] Comment on above: Vitamin D 25(OH) Sta tus Range Deficiency <20 ng/mL (50nmol/L) Insufficiency 20 - 30 ng/mL (50 - 75 nmol/L) Sufficiency 30 - 100 ng/mL (75 - 250 nmol/L) Toxicity >100 ng/mL (>250 nmol/L) Serum or plasma cholesterol in HDL measurement (mass/volume)Ordered By: Shu Birch on 11-25-2022 Cholesterol in HDL [Mass/Vol] 78 mg/dL >40 [facility] Comment on above: The drugs N-Acetylcy steine and Metamizole may falsely depress this assay. Reference Range HDL <40 mg/dL Low HDL Cholesterol HDL >or= 60 mg/dL High HDL Cholesterol Serum or plasma cholesterol in VLDL measurement (mass/volume)Ordered By: Shu Birch on 11-25-2022 Cholesterol in VLDL [Mass/Vol] 18 mg/dL 5-40 [facility] Serum or plasma estradiol (E 2) measurement (mass/volume)Ordered By: Shu Birch on 11-25-2022 E2 [Mass/Vol] pg/mL [facility] Comment on above: NORMAL REFERENCE RAN GES FEMALE FOLLICULAR 21.4 - 164.8 pg/mL MID-CYCLE PEAK 49.9 - 367.2 pg/mL LUTEAL 40.2 - 259.0 pg/mL POST-MENOPAUSAL ON MHT <11.0 - 462.1 pg/mL NOT ON MHT <11.0 - 58.3 pg/mL MALE <11.0 - 52.5 pg/mL NOTE:[employer] HAS CONFIRMED THE DRUG FULVETRANT (FASLODEX) MAY CAUSE FALSELY ELEVATED ESTRADIOL RESULTS WHEN USING THIS TEST METHOD. IF PATIENT IS TAKING FULVESTRANT AN ALTERNATIVE METHOD SHOULD BE USED TO DETERMINE ESTRADIOL CONCENTRATION. Serum or plasma low density lipoprotein (LDL) cholesterol measurement (mass/volume)Ordered By: Shu Birch on 11-25-2022 Cholesterol in LDL [Mass/Vol] 96 mg/dL 0-130 [facility] Cervical or vagninal specime n microscopic examination by cytology stain (reported asOrdered By: Shu Birch on 11-20-2022 Cytology report Cyto stain Doc (Cvx/Vag) Comment . [facility] Comment on above: The Pap smear is a s creening test designed to aid in thedetection of premalignant and malignant conditions of theuterine cervix. It is not a diagnostic procedure andshould not be used as the sole means of detecting cervicalcancer. Both false-positive and false-negative reports dooccur. Detection in cervical specim en of any of human papilloma virus (HPV) 16, 18, 31, 33,Ordered By: Shu Birch on 11-20-2022 HPV 16+18+31+33+35+39+45+5 1+52+56+58+59+66+68 DNA Probe+sig amp Ql (Cvx) Negative Negative [facility] Comment on above: This nucleic acid am plification test detects fourteen high- risk HPV types (16,18,31,33,35,39,45,51,52,56,58,59,66,68)without differentiation. Laboratory - CytologyOrdered By: Shu Birch on 11-20-2022 Meat Counter Worker Cyto stain Nom (Cvx/Vag) [ID] Comment . [facility] Comment on above: dAele Espinosa, Cyt otechnologist (ASCP) Laboratory - Miscellaneous t estsOrdered By: Shu Birch on 11-20-2022 Service comment (Unsp spec) [Interp] Comment . [facility] Comment on above: This liquid based Th inPrep(R) pap test was screened withthe use of an image guided system. Service comment (Unsp spec) [Interp] . . [facility] Liquid-based cerv Pap + CT/G C by TUAN w reflex to high-risk HPV for ASCUSOrdered By: Shu Birch on 11-20-2022 Cytology report Cyto stain.thin prep Doc (Cvx/Vag) Comment . [facility] Comment on above: Criteria not met, HP V Genotype not performed.Performed at: [facility] [id number] Director: Fatimah Han MD, Phone: [phone] at: [facility] [id number] Director: Linda Flores MD, Phone: [phone] at: =[facility] [id number] Director: Linda Flores MD, Phone: [phone] No Panel InformationOrdered By: Shu Birch on 11-20-2022 Pathology report final diagnosis Narrative Comment . [facility] Comment on above: NEGATIVE FOR INTRAEP ITHELIAL LESION OR MALIGNANCY. STREP A MOLECULAR (POC)on Procedural Control Valid [facility] Strep A (POCT) Negative Negative [facility] Absolute lymphocyte counton 07-30-2021 Lymphocytes Auto (Unsp spec) [#/Vol] 1.93 10*3/uL 0.83-4.51 [facility] Work Phone: Basophil percentageon 2021 Basophils/100 WBC (Bld) 0.5 % 0-1 [facility] Work Phone: Cholesterol [Mass/Vol] 225 mg/dL <200 [facility] Work Phone: Comment on above: <200 mg/dL Desirable 200-240 mg/dL Borderline >240 mg/dL High Risk Eosinophils/100 WBC (Bld) 2.9 % 0-5 [facility] Work Phone: Glucose [Mass/Vol] 89 mg/dL 74-106 [facility] Work Phone: Neutrophils (Bld) [#/Vol] 3.6 10*3/uL 2.0-7.7 [facility] Work Phone: Neutrophils/100 WBC (Bld) 56.0 % 47-70 [facility] Work Phone: Triglyceride [Mass/Vol] 138 mg/dL [facility] Work Phone: Comment on above: The drugs N-Acetylcy steine and Metamizole may falsely depress this assay.Serum Triglycerides Reference Interval Normal <150 mg/dL Borderline high 150 - 199 mg/dL High 200 - 499 mg/dL Very High > or = 500 mg/dL WBC (Bld) [#/Vol] 6.5 10*3/uL 4.4-11.0 [facility] Work Phone: Blood erythrocytes count (nu mber/volume)on 07-30-2021 RBC (Bld) [#/Vol] 4.74 10*6/uL 4.2-5.4 [facility] Work Phone: Blood hemoglobin measurement (mass/volume)on 07-30-2021 Hemoglobin (Bld) [Mass/Vol] 14.0 g/dL 12.0-15.0 [facility] Work Phone: Blood lymphocytes/100 leukoc yteson 07-30-2021 Lymphocytes/100 WBC (Bld) 29.8 % 19-41 [facility] Work Phone: Blood monocytes/100 leukocyt eson 07-30-2021 Monocytes/100 WBC (Bld) 10.5 % 0-10 [facility] Work Phone: Blood platelet mean volumeon 07-30-2021 Platelet mean volume (Bld) [Entitic vol] 9.3 fL 6.2-12.0 [facility] Work Phone: Determination of erythrocyte mean corpuscular volume (MCV)on 07-30-2021 MCV (RBC) [Entitic vol] 86.7 fL 81-99 [facility] Work Phone: Hematocrit Auto (Bld) [Volum e fraction]on 07-30-2021 Hematocrit (Bld) [Volume fraction] 41.1 % 37-47 [facility] Work Phone: Laboratory - Hematology and Cell countson 07-30-2021 Erythrocyte distribution width (RBC) [Entitic vol] 40.7 fL 35.1-43.9 [facility] Work Phone: Erythrocyte distribution width (RBC) [Ratio] 12.8 % 11.6-14.6 [facility] Work Phone: Immature granulocytes/100 WBC (Bld) 0.300 % 0.0-0.9 [facility] Work Phone: Comment on above: IG% - Immature Granu locytes (promyelocytes, myelocytes and metamyelocytes) > 1% indicates that a LEFT SHIFT is Present. MCH (RBC) [Entitic mass] 29.5 pg 27.0-32.0 [facility] Work Phone: Nucleated RBC/100 WBC (Bld) [Ratio] 0 % 0-5 [facility] Work Phone: MCHC Auto (RBC) [Mass/Vol]on 07-30-2021 MCHC (RBC) [Mass/Vol] 34.1 g/dL 32-36 [facility] Work Phone: No Panel Informationon 07-30 Thyroid Stimulating Hormone (TSH) 3.47 uIU/mL 0.358-3.74 [facility] Work Phone: Vitamin D 25-Hydroxy 37.4 ng/mL [facility] Work Phone: Comment on above: Vitamin D 25(OH) Sta tus Range Deficiency <20 ng/mL (50nmol/L) Insufficiency 20 - 30 ng/mL (50 - 75 nmol/L) Sufficiency 30 - 100 ng/mL (75 - 250 nmol/L) Toxicity >100 ng/mL (>250 nmol/L) Platelets bldon 07-30-2021 Platelets (Bld) [#/Vol] 304 10*3/uL 150-450 [facility] Work Phone: Serum or plasma cholesterol in HDL measurement (mass/volume)on 07-30-2021 Cholesterol in HDL [Mass/Vol] 75 mg/dL [facility] Work Phone: Comment on above: The drugs N-Acetylcy steine and Metamizole may falsely depress this assay. Reference Range HDL <40 mg/dL Low HDL Cholesterol HDL >or= 60 mg/dL High HDL Cholesterol Serum or plasma cholesterol in VLDL measurement (mass/volume)on 07-30-2021 Cholesterol in VLDL [Mass/Vol] 28 mg/dL 5-40 [facility] Work Phone: Serum or plasma low density lipoprotein (LDL) cholesterol measurement (mass/volume)on 07-30-2021 Cholesterol in LDL [Mass/Vol] 122 mg/dL 0-130 [facility] Work Phone: Serum or plasma prolactin me asurement (mass/volume)on 07-30-2021 Prolactin [Mass/Vol] 15.2 ng/mL [facility] Work Phone: Comment on above: NORMAL REFERENCE RAN GES FEMALE NON- 2.2 - 30.3 ng/mL 8.1 - 347.6 ng/mL POST-MENOPAUSAL 0.7 - 31.5 ng/mL MALE 2.5 - 17.4 ng/mL Laboratory - Microbiology an d Antimicrobial susceptibilityon 04-30-2021 SARS-CoV-2 (COVID-19) RNA TUAN+probe Ql (Unsp spec) Detected Not Detect [facility] Work Phone: Comment on above: Normal Reference Ran ge: Not DetectedMethod:(RT-PCR) real-time reverse transcriptase PCRLuminex JONATHAN Instrument*The Food and Drug Administration (FDA) has issued an Emergency Use Authorization (EAU) for the JONATHAN SARS-CoV-2 Assay for the rapid detection of the virus that causes COVID-19. This test has been validated, but the FDAs independent review of this validation is pending.*Negative results do not preclude infection and should not be used as the sole basis for treatment or patient management. Optimum specimen types and timing for peak viral levels during infections caused by SARS-CoV-2 have not been determined. Collection of multiple specimens from the same patient may be necessary to detect the virus. The possibility of a false negative result should be considered if the patient has clinical presentation or has had recent exposure. Laboratory - Microbiology an d Antimicrobial susceptibilityon 04-19-2021 SARS-CoV-2 (COVID-19) RNA TUAN+probe Ql (Unsp spec) Not detected Not Detect [facility] Work Phone: Comment on above: Normal Reference Ran ge: Not DetectedMethod:(RT-PCR) real-time reverse transcriptase PCRLuminex JONATHAN Instrument*The Food and Drug Administration (FDA) has issued an Emergency Use Authorization (EAU) for the JONATHAN SARS-CoV-2 Assay for the rapid detection of the virus that causes COVID-19. This test has been validated, but the FDAs independent review of this validation is pending.*Negative results do not preclude infection and should not be used as the sole basis for treatment or patient management. Optimum specimen types and timing for peak viral levels during infections caused by SARS-CoV-2 have not been determined. Collection of multiple specimens from the same patient may be necessary to detect the virus. The possibility of a false negative result should be considered if the patient has clinical presentation or has had recent exposure. XR Sacrum and Coccyx 3 Views on 03-26-2021 * * *Final Report* * * DATE OF EXAM: Mar 26 2021 9:36AM WOX 5246 - XR SACRUM/COCCYX 3V AP/LAT / PROCEDURE REASON: multiple diagnoses * * * * Physician Interpretation * * * * Indication: Fall Comparison: None AP and lateral x-rays of the sacrum and coccyx are obtained. There is no acute fracture or dislocation. Joint spaces are maintained. Impression: 1. No acute fracture or dislocation. Metallography Teacher: SHARDA Transcribe Date/Time: Mar 26 2021 9:39A Dictated by : RADHA GARDUNO MD This examination was interpreted and the report reviewed and electronically signed by: RADHA GARDUNO MD on Mar 26 2021 9:41AM [facility] DIVISION OF RADIOLOGY Provider, [facility] [place] - 03/26/2021 * * *Final Report* * * DATE OF EXAM: Mar 26 2021 9:36AM WOX 5246 - XR SACRUM/COCCYX 3V AP/LAT / PROCEDURE REASON: multiple diagnoses * * * * Physician Interpretation * * * * Indication: Fall Comparison: None AP and lateral x-rays of the sacrum and coccyx are obtained. There is no acute fracture or dislocation. Joint spaces are maintained. Impression: 1. No acute fracture or dislocation. Metallography Teacher: SHARDA Transcribe Date/Time: Mar 26 2021 9:39A Dictated by : RADHA GARDUNO MD This examination was interpreted and the report reviewed and electronically signed by: RADHA GARDUNO MD on Mar 26 2021 9:41AM EST [facility] Radiology Study observation (narrative) [facility] XR Sacrum and Coccyx 3 Views Ordered By: [facility] Provider on 03-26-2021 [facility] Lab Report: Miscellaneous La b Procedureon 05-27-2017 GE use only - for LinkLogic import when terms are not otherwise specified . Invalid Interpretation Code [facility] Vital Signs Date Time Vital Sign Value Performing Clinician Facility 03-04-2024 11:26-0400 Body mass index (BMI) [Ratio] 22.33 kg/m2 Mo Niño APRN.CNP Work Phone: [facility] 03-04-2024 11:26-0400 Body temperature 97.59 [degF] Mo Niño APRN.BUILD MANAGER Work Phone: [facility] 03-04-2024 11:26-0400 Body weight 61.8 kg Mo Niño APRN.CNP Work Phone: [facility] 03-04-2024 11:26-0400 Diastolic blood pressure 90 mm[Hg] Mo Niño APRN.BUILD MANAGER Work Phone: [facility] 03-04-2024 11:26-0400 Heart rate 100 /min Mo Niño APRN.BUILD MANAGER Work Phone: [facility] 03-04-2024 11:26-0400 Respiratory rate 18 /min Mo Niño APRN.BUILD MANAGER Work Phone: [facility] 03-04-2024 11:26-0400 SaO2% (BldA) [Mass fraction] 99 % Mo Niño APRN.BUILD MANAGER Work Phone: [facility] 03-04-2024 11:26-0400 Systolic blood pressure 130 mm[Hg] Mo Niño APRN.CNP Work Phone: [facility] 09-13-2023 09:51-0400 Body mass index (BMI) [Ratio] 21.57 kg/m2 Katie Moomaw RN PARALEGAL.BUILD MANAGER Work Phone: [facility] 09-13-2023 09:51-0400 Body temperature 97.39 [degF] Katie Moomaw RN PARALEGAL.BUILD MANAGER Work Phone: [facility] 09-13-2023 09:51-0400 Body weight 59.7 kg Katie Moomaw RN PARALEGAL.BUILD MANAGER Work Phone: [facility] 09-13-2023 09:51-0400 Diastolic blood pressure 89 mm[Hg] Katie Moomaw RN PARALEGAL.BUILD MANAGER Work Phone: [facility] 09-13-2023 09:51-0400 Heart rate 87 /min Katie Moomaw RN PARALEGAL.BUILD MANAGER Work Phone: [facility] 09-13-2023 09:51-0400 Respiratory rate 18 /min Katie Moomaw RN PARALEGAL.BUILD MANAGER Work Phone: [facility] 09-13-2023 09:51-0400 SaO2% (BldA) [Mass fraction] 99 % Katie Moomaw RN PARALEGAL.BUILD MANAGER Work Phone: [facility] 09-13-2023 09:51-0400 Systolic blood pressure 122 mm[Hg] Katie Moomaw RN PARALEGAL.BUILD MANAGER Work Phone: [facility] 11-20-2022 08:58-0400 Body height 165.[address] Calixto Dexter Work Phone: [facility] 11-20-2022 08:54-0400 Body mass index (BMI) [Ratio] 22.4 kg/m2 Dr. Calixto Dexter Work Phone: [facility] 11-20-2022 08:54-0400 Body weight 61.[address] Calixto Dexter Work Phone: [facility] 11-20-2022 08:54-0400 Diastolic blood pressure 68 mm[Hg] Dr. Calixto Dexter Work Phone: [facility] 11-20-2022 08:54-0400 Systolic blood pressure 108 mm[Hg] Dr. Calixto Dexter Work Phone: [facility] 09-16-2022 08:12-0400 Body temperature 97.11 [degF] Nguyen Eitan RN PARALEGAL.BUILD MANAGER Work Phone: [facility] 09-16-2022 08:12-0400 Body weight 63.23 kg Nguyen Eitan RN PARALEGAL.BUILD MANAGER Work Phone: [facility] 09-16-2022 08:12-0400 Diastolic blood pressure 82 mm[Hg] Nguyen Eitan RN PARALEGAL.BUILD MANAGER Work Phone: [facility] 09-16-2022 08:12-0400 Heart rate 102 /min Nguyen Eitan RN PARALEGAL.BUILD MANAGER Work Phone: [facility] 09-16-2022 08:12-0400 Respiratory rate 21 /min Nguyen Eitan RN PARALEGAL.BUILD MANAGER Work Phone: [facility] 09-16-2022 08:12-0400 SaO2% (BldA) [Mass fraction] 99 % Nguyen Eitan RN PARALEGAL.BUILD MANAGER Work Phone: [facility] 09-16-2022 08:12-0400 Systolic blood pressure 140 mm[Hg] Nguyen Eitan RN PARALEGAL.BUILD MANAGER Work Phone: [facility] 07-06-2022 12:21-0500 Body temperature 97.11 [degF] Olvin Cheng MD Work Phone: [facility] 07-06-2022 12:21-0500 Body weight 62.23 kg Olvin Cheng MD Work Phone: [facility] 07-06-2022 12:21-0500 Diastolic blood pressure 76 mm[Hg] Olvin Cheng MD Work Phone: [facility] 07-06-2022 12:21-0500 Heart rate 76 /min Olvin Cheng MD Work Phone: [facility] 07-06-2022 12:21-0500 Respiratory rate 18 /min Olvin Cheng MD Work Phone: [facility] 07-06-2022 12:21-0500 SaO2% (BldA) [Mass fraction] 99 % Olvin Cheng MD Work Phone: [facility] 07-06-2022 12:21-0500 Systolic blood pressure 122 mm[Hg] Olvin Cheng MD Work Phone: [facility] 07-26-2021 08:08-0400 Body height 165.[address] Calixto Dexter Work Phone: [facility] Work Phone: 07-26-2021 08:08-0400 Body mass index (BMI) [Ratio] 23.4 kg/m2 Dr. Calixto Dexter Work Phone: [facility] Work Phone: 07-26-2021 08:08-0400 Body weight 63.[address] Calixto Dexter Work Phone: [facility] Work Phone: 07-26-2021 08:08-0400 Diastolic blood pressure 66 mm[Hg] Dr. Calixto Dexter Work Phone: [facility] Work Phone: 07-26-2021 08:08-0400 Systolic blood pressure 108 mm[Hg] Dr. Calixto Dexter Work Phone: [facility] Work Phone: Encounters Encounter Date Encounter Type Care Provider Facility Start: 11-29-2024 ambulatory Shu Nogueira ity:[facility] Start: 03-04-2024 End: 03-04-2024 ambulatory Facility:[facility] Start: 03-04-2024 End: 03-04-2024 Office outpatient visit 15 minutes Mo Niño APRN.CNP Work Phone: [facility] Comment on above: Sore throat (Primary Dx); Viral pharyngitis Start: 12-23-2023 End: 12-23-2023 ambulatory Shu Portillos LEAD [employer] R[employer]ER Facility:[facility] Start: 12-02-2023 End: 12-02-2023 ambulatory Shu Eyal LEAD PON[employer] RIDER [place] [place]: 09-13-2023 End: 09-13-2023 ambulatory Facility:[facility] Start: 09-13-2023 End: 09-13-2023 Patient encounter procedure Katie Velez APRN.BUILD MANAGER Work Phone: [facility] Comment on above: Poison liam dermatiti s (Primary Dx) Start: 08-07-2023 End: 08-07-2023 ambulatory Facility:[facility] Start: 11-25-2022 End: 11-25-[address] Calixto Dexter Work Phone: [facility] Work Phone: Start: 11-25-2022 End: 11-25-[address] Calixto Dexter Work Phone: [facility]-Laboratory, [facility] Start: 11-20-2022 End: 11-20-[address] Calixto Dexter Work Phone: [facility]-Laboratory, Specimen Work Phone: Start: 11-20-2022 End: 11-20-[address] Calixto Dexter Work Phone: [facility] Work Phone: Start: 10-09-2022 End: 10-09-[address] Calixto Dexter Work Phone: [facility] Work Phone: Start: 10-09-2022 End: 10-09-[address] Calixto Dexter Work Phone: [facility]-Outpatient Breast Imaging Work Phone: Start: 09-16-2022 End: 09-16-2022 Patient encounter procedure Nguyen Eitan RN PARALEGAL.BUILD MANAGER Work Phone: [facility] Comment on above: Sore throat (Primary Dx); URI, acute Start: 07-06-2022 End: 07-06-2022 Patient encounter procedure Olvin Cheng MD Work Phone: [facility] Comment on above: Rash (Primary Dx) Start: 07-30-2021 End: 07-30-[address] Calixto Dexter Work Phone: [facility]Laboratory, OP Pavilion Start: 07-26-2021 End: 07-26-[address] Calixto Dexter Work Phone: [facility] Start: 07-25-2021 End: 07-25-[address] Calixto Dexter Work Phone: [facility]Out[facility] Ultrasound Start: 07-18-2021 End: 07-18-[address] Calixto Dexter Work Phone: [facility]-Outpatient Breast Imaging Start: 04-30-2021 End: 04-30-[address] Calixto Dexter Work Phone: [facility] Start: 04-19-2021 End: 04-19-[address] Calixto Dexter Work Phone: [facility] Start: 03-26-2021 End: 03-26-2021 Subsequent hospital visit by physician [facility] Work Phone: Radiology Comment on above: Fall, initial encoun ter [W19.XXXA] Procedures Date Procedure Procedure Detail Performing Clinician Start: 03-04-2024 STREP A MOLECULAR (POC) Mo Niño APRN.BUILD MANAGER Work Phone: Start: 10-09-2022 Screening mammography Brendon Dexter Work Phone: Start: 09-16-2022 STREP A MOLECULAR (POC) Nguyen Laidr APRN.BUILD MANAGER Work Phone: Start: 07-25-2021 End: 07-25-[address] Calixto Dexter Work Phone: Start: 07-18-2021 End: 07-18-[address] Calixto quiroz Work Phone: Start: 03-26-2021 Radex sacrum & coccy x minimum 2 views Nguyen Laird RN PARALEGAL.BUILD MANAGER Work Phone: Start: 01-28-2018 Lipid 1996 panel - S fahad or Plasma Katie Jayshreew RN PARALEGAL.BUILD MANAGER Work Phone: Start: 04-07-2017 End: 05-27-2017 Mammogram, screening Shu Birch LEAD [employer]Y [employer]ER Work Phone: Plan of Treatment Date Care Activity Detail Author Start: 11-14-2031 Urine microalbumin profile DTaP,Tdap,Td Vaccine (4 - Td or Tdap) [facility] Start: 01-29-2028 Urine microalbumin profile DTAP,TDAP,TD (3 - Td or Tdap) [facility] Start: 01-11-2024 Covid-19 Vaccine ( season) Covid-19 Vaccine ( season) [facility] Start: 01-11-2024 Influenza vaccination [facility] Start: 10-10-2023 Screening for malign ant neoplasm of breast Mammogram Screening [facility] Start: 05-12-2023 Behavioral Health Screening Behavioral Health Screening [facility] Start: 01-28-2023 Lipid panel Lipid Screening [facility] Start: 01-28-2023 LIPID SCREEN LIPID SCREEN [facility] Start: 01-10-2023 Covid-19 Vaccine ( season) Covid-19 Vaccine () [facility] Start: 01-10-2023 Influenza vaccination INFLUENZ A (Season Ended) [facility] Start: 11-20-2022 Patient referral [facility] Work Phone: Start: 11-20-2022 Liquid based cervica l cytology screening [facility] Start: 07-18-2022 Mammography MAMMOGRAM [facility] Start: 07-06-2022 End: 09-05-2022 Herpes simplex virus+Varicella zoster virus DNA [Presence] in Unspecified specimen by TUAN with probe detection HSV1,2/VZV NAAT LESION Lab Routine Rash Expected: 07/06/2022, Expires: 09/05/2022 [facility] Work Phone: Comment on above: Expected: 07/06/2022 , Expires: 09/05/2022 Start: 05-12-2022 DEPRESSION ASSESSMENT DEPRESSION ASS ESSMENT [facility] Start: 01-10-2022 Influenza vaccination INFLUENZA (#1) [facility] Start: 10-10-2021 COVID-19 VACCINE (3 - Booster for Pfizer series) COVID-19 VACCINE (3 - Booster for Pfizer series) [facility] Start: 08-21-2021 SHINGRIX VACCINE (1 of 2) SHINGRIX VACCINE (1 of 2) [facility] Start: 01-28-2021 DIABETES SCREEN DIABETES SCREEN [facility] Start: 01-28-2021 Diabetes Screening Diabetes Screenin g [facility] Start: 12-29-2019 HPV TESTING HPV TESTING [facility] Start: 12-29-2019 PAP TESTING PAP TESTING [facility] Start: 12-29-2019 Screening for malign ant neoplasm of cervix [facility] Start: 04-23-2017 End: 04-23-2017 Appointment Appointment [facility] Start: 04-07-2017 End: 04-07-2017 Mammogram, screening Mammogram, Screening, both breasts [facility] Start: 04-07-2017 End: 05-27-2017 Mammogram, screening Mammogram, Screening, both breasts [facility] Start: 08-21-2016 COLOGUARD (FIT-DNA) COLOGUARD (FIT-D NA) [facility] Start: 08-21-2016 Colonoscopy COLONOSCOPY [facility] Start: 08-21-2016 COLORECTAL CANCER SCREENING COLORECTAL CANCER SCREENING [facility] Start: 08-21-[address] [facility] Start: 08-21-2016 FECAL OCCULT BLOOD FECAL OCCULT BLOO D [facility] Start: 08-21-2016 Screening for malign ant neoplasm of colon [facility] Start: 08-21-2016 SIGMOIDOSCOPY SIGMOIDOSCOPY [facility] Start: 08-21-1990 Hepatitis B Vaccine (1 of 3 - 19+ 3-dose series) Hepatitis B Vaccine (1 of 3 - 19+ 3-dose series) [facility] Start: 08-21-1989 Anxiety Screening Anxiety Screening [facility] Start: 08-21-1989 Depression Screening Depression Scre baljinder [facility] Start: 08-21-1989 HEPATITIS C SCREENING HEPATITIS C [facility] Start: 08-21-1989 Hepatitis C screening Hepatitis C [facility] Start: 1970 HEPATITIS B (1 of 3 - 3-dose series) HEPATITIS B (1 of 3 - 3-dose series) [facility] Estradiol (E2) [Mass/volume] in Serum or Plasma [facility] Follicle stimulating hormone measurement [facility] Glucose [Mass/volume ] in Serum or Plasma [facility] Lipid 1996 panel - Serum or Plasma [facility] MG Breast - bilatera l Screening [facility] Path report.final Dx Spec [facility] Patient referral [facility] Work Phone: Thyroid stimulating hormone measurement [facility] Vitamin D, 25-hydrox y measurement [facility] Immunizations Immunization Date Immunization Notes Care Provider Fa michelle 07-25-2021 COVID-19 original vaccine, age 12+ yr, monovalent ([employer] - [employer]) Olvin Cheng MD Work Phone: [facility] 01-28-2018 tetanus toxoid, redu maribeth diphtheria toxoid, and acellular pertussis vaccine, adsorbed Olvin Cheng MD Work Phone: [facility] 01-28-2018 influenza virus vaccine, unspecified formulation Katie Velez APRN.CNP Work Phone: [facility] 05-12-2003 diphtheria and tetan us toxoids, adsorbed for pediatric use Olvin Cheng MD Work Phone: [facility] Work Phone: Payers Date Payer Category Payer Self-pay [id number] 2012 Unknown [employer] BLUE CARD PPO OOS [id number] 2012-Present [phone] [facility] [id number] [place] [address] PPO [id number] 2012 Unknown [id number] Unknown [id number] Unknown [id number] Social History Date Type Detail Facility Start: 07-26-2021 End: 11-20-2022 Tobacco smoking status PAIS Unknown if ever smoked [facility] Start: 1970 Sex Assigned At Female [facility] Start: 10-09-2011 Tobacco smoking stat us PAIS Never smoked tobacco [facility] Start: 10-09-2011 Tobacco use and exposure Smokeless tobacco non-user [facility] Start: 07-06-2022 End: 03-04-2024 Alcohol intake Current non-drinker of alcohol (finding) [facility] Start: 1970 Sex Assigned At Not on file [facility] Start: 04-19-2020 End: 09-13-2023 History of Social function [facility] Start: 04-19-2020 End: 09-13-2023 Tobacco use panel [facility] Adult Depression Screening Assessment 0 [facility] Start: 02-24-2021 End: 03-26-2021 Exposure to SARS-CoV-2 (event) Not sure [facility] Clinical Notes 03-26-2021 to 03-04-2024 Mo Niño APRN.BUILD MANAGER - 03/04/2024 11:32 AM Katie Horta APRN.BUILD MANAGER - 09/13/2023 9:53 AM Miguel Laird APRN.BUILD MANAGER - 09/16/2022 8:43 AM EDT Note Date & Type Note Facility 03-04-2024 Note HNO ID: [id number] Author: MO NIÑO APRN.BUILD MANAGER Service: ? Author Type: Nurse Practitioner Type: Progress Notes Filed: 03/04/2024 12:06 Note Text: SUBJECTIVE: Rosetta Palacios is a 53 year old female. Who presents today with sore throat body fatigue aches congestion started on Friday. She has not had a fever. She has taken mucinex and tylenol for the symptoms. She has not been exposed to anyone who is sick. She would like strep testing today. She has declined viral testing today as last time she received a large bill from her insurance HPI PAST MEDICAL HISTORY Diagnosis Date Abnormal glandular Papanicolaou smear of cervix 1993, 1994 ASCUS FAMILY HISTORY Problem Relation Age of Onset Hypertension Mother Thyroid Mother Diabetes Mother other (aortic aneurysn) Mother other (diverticulitis) Mother removed part of colon Hypertension Brother Stroke Maternal Grandmother brain aneurysm Hypertension Maternal Grandfather Social History Tobacco Use Smoking status: Never Smokeless tobacco: Never Substance Use Topics Alcohol use: No Drug use: No ALLERGIES No Known Allergies Current Outpatient Medications Medication Sig Dispense Refill Desogestrel-Ethinyl Estradiol 0.15-0.02 mgx21 /0.01 mg x 5 per tablet Take 1 tablet by mouth once daily. 3 Package 4 predniSONE (DELTASONE) 10 mg tablet Take 4 tabs daily x5 days, then 2 tabs daily for 5 days, then 1 tab daily for 5 days. (Patient not taking: Reported on 03/04/2024) 35 tablet 0 doxycycline monohydrate (MONODOX) 100 mg capsule take 1 capsule by mouth twice a day with food (Patient not taking: Reported on 03/04/2024) No current facility-administered medications for this visit. OBJECTIVE: BP 130/90 Pulse 100 Temp 36.4 ?C (97.6 ?F) Resp 18 Wt 61.8 kg (136 lb 3.9 oz) LMP 07/30/2023 (Exact Date) SpO2 99% BMI 22.33 kg/m? ROS: All systems reviewed and are otherwise negative Constitutional: Well developed, well nourished, AANDO X3. ENT: Head is atraumatic, airway patent, mucosal membranes moist, pink, no exudate, no peritonsillar abscess, mercedes TM clear with no signs of infection Neck: full ROM, no meningeal signs Cardiac: heart tones regular rate and rhythm Respiratory: lung CTA respiration even and unlabored : no CVA tenderness MS: moves all extremities, no deformities noted Neuro: GCS 15 no focal deficits Skin: warm and dry with out rash, lesion or ecchymosis on exposed skin Psych: alert appropriate, speech clear Diagnostic testing: Strep testing Differential Diagnosis Strep Throat, Viral Pharyngitis, Peritonsillar Abscess, meningitis, bacterial pneumonia, sinusitis, allergic rhinitis, and bronchitis to name a few. MDM: Patient presented to the [facility] today for strep testing. A strep test was obtained and was NEGATIVE. Rosetta Palacios will be treated for viral pharyngitis. As this is not a bacterial infection, antibiotics are not indicated. At this time I do not suspect a serious underlying emergent process. I considered, but think unlikely, dangerous causes of this patient?s symptoms to include Peritonsillar abscess and meningitis. Patient is nontoxic appearing and not in need of emergent medical intervention. Vital signs were evaluated and found to be within normal limits. We have discussed over the counter medications to use for their symptoms. They may take Motrin and Tylenol for pain, body aches and fever. They will follow-up with their family doctor in the next 2-3 days. If symptoms worsen they will go straight to the emergency department for further evaluation and treatment. They voiced understanding of the plan of care and are in agreement. ASSESSMENT/PLAN: 1. Sore throat - ICD9: 462, ICD10: J02.9 (primary diagnosis) - STREP A MOLECULAR (POC) 2. Viral pharyngitis - ICD9: 462, ICD10: J02.9 Mo Niño APRN.[facility] 03-04-2024 History of Present illness Narrative SUBJECTIVE: Rosetta Palacios is a 53 year old female. Who presents today with sore throat body fatigue aches congestion started on Friday. She has not had a fever. She has taken mucinex and tylenol for the symptoms. She has not been exposed to anyone who is sick. She would like strep testing today. She has declined viral testing today as last time she received a large bill from her insurance HPI PAST MEDICAL HISTORY Diagnosis Date Abnormal glandular Papanicolaou smear of cervix 1993, 1994 ASCUS FAMILY HISTORY Problem Relation Age of Onset Hypertension Mother Thyroid Mother Diabetes Mother other (aortic aneurysn) Mother other (diverticulitis) Mother removed part of colon Hypertension Brother Stroke Maternal Grandmother brain aneurysm Hypertension Maternal Grandfather Social History Tobacco Use Smoking status: Never Smokeless tobacco: Never Substance Use Topics Alcohol use: No Drug use: No ALLERGIES No Known Allergies Current Outpatient Medications Medication Sig Dispense Refill Desogestrel-Ethinyl Estradiol 0.15-0.02 mgx21 /0.01 mg x 5 per tablet Take 1 tablet by mouth once daily. 3 Package 4 predniSONE (DELTASONE) 10 mg tablet Take 4 tabs daily x5 days, then 2 tabs daily for 5 days, then 1 tab daily for 5 days. (Patient not taking: Reported on 03/04/2024) 35 tablet 0 doxycycline monohydrate (MONODOX) 100 mg capsule take 1 capsule by mouth twice a day with food (Patient not taking: Reported on 03/04/2024) No current facility-administered medications for this visit. OBJECTIVE: BP 130/90 Pulse 100 Temp 36.4 C (97.6 F) Resp 18 Wt 61.8 kg (136 lb 3.9 oz) LMP 07/30/2023 (Exact Date) SpO2 99% BMI 22.33 kg/m ROS: All systems reviewed and are otherwise negative Constitutional: Well developed, well nourished, A&O X3. ENT: Head is atraumatic, airway patent, mucosal membranes moist, pink, no exudate, no peritonsillar abscess, mercedes TM clear with no signs of infection Neck: full ROM, no meningeal signs Cardiac: heart tones regular rate and rhythm Respiratory: lung CTA respiration even and unlabored : no CVA tenderness MS: moves all extremities, no deformities noted Neuro: GCS 15 no focal deficits Skin: warm and dry with out rash, lesion or ecchymosis on exposed skin Psych: alert appropriate, speech clear Diagnostic testing: Strep testing Differential Diagnosis Strep Throat, Viral Pharyngitis, Peritonsillar Abscess, meningitis, bacterial pneumonia, sinusitis, allergic rhinitis, and bronchitis to name a few. MDM: Patient presented to the [facility] today for strep testing. A strep test was obtained and was NEGATIVE. Rosettaholly Palacios will be treated for viral pharyngitis. As this is not a bacterial infection, antibiotics are not indicated. At this time I do not suspect a serious underlying emergent process. I considered, but think unlikely, dangerous causes of this patient s symptoms to include Peritonsillar abscess and meningitis. Patient is nontoxic appearing and not in need of emergent medical intervention. Vital signs were evaluated and found to be within normal limits. We have discussed over the counter medications to use for their symptoms. They may take Motrin and Tylenol for pain, body aches and fever. They will follow-up with their family doctor in the next 2-3 days. If symptoms worsen they will go straight to the emergency department for further evaluation and treatment. They voiced understanding of the plan of care and are in agreement. ASSESSMENT/PLAN: 1. Sore throat - ICD9: 462, ICD10: J02.9 (primary diagnosis) - STREP A MOLECULAR (POC) 2. Viral pharyngitis - ICD9: 462, ICD10: J02.9 Mo Niño APRN.BUILD MANAGER documented in this encounter [facility] 09-13-2023 Note HNO ID: [id number] Author: KATIE VELEZ APRN.BUILD MANAGER Service: ? Author Type: Nurse Practitioner Type: Progress Notes Filed: 09/13/2023 09:59 Note Text: This note was created using [employer]. Subjective Rosetta Palacios is a 53 year old female. HPI Pt developed a vesiclular rash that started about 5 days ago. She had been outside working in the [employer]. Review of Systems Constitutional: Negative for fatigue and fever. Skin: Positive for rash. Objective BP 122/89 Pulse 87 Temp 36.3 ?C (97.4 ?F) Resp 18 Wt 59.7 kg (131 lb 9.8 oz) LMP 07/30/2023 (Exact Date) SpO2 99% BMI 21.57 kg/m? Physical Exam Vitals and nursing note reviewed. Constitutional: General: She is not in acute distress. Appearance: Normal appearance. She is not ill-appearing. HENT: Head: Normocephalic. Eyes: Conjunctiva/sclera: Conjunctivae normal. Pulmonary: Effort: Pulmonary effort is normal. Musculoskeletal: General: Normal range of motion. Cervical back: Normal range of motion. Skin: General: Skin is warm and dry. Findings: Rash present. Comments: Scattered vesicular rash across the palmar aspect of the left forearm and palmar aspect of right wrist. Rash is not erythematous. Neurological: General: No focal deficit present. Mental Status: She is alert. Psychiatric: Mood and Affect: Mood normal. Behavior: Behavior normal. Assessment and Plan ASSESSMENT/PLAN: 1. Poison liam dermatitis - ICD9: 692.6, ICD10: L23.7 - Oral Steriod tx -Prednisone taper - discussed skin care of rash - follow up if symptoms persist or worsen. -Discussed the importance of thoroughly cleaning all clothing that she was wearing while working out in the [employer]. -Patient given a 15-day taper of prednisone. - PREDNISONE 10 MG TABLET Katie Velez APRN.[facility] 09-13-2023 History of Present illness Narrative This note was created using [employer]. Subjective Rosetta Palacios is a 53 year old female. HPI Pt developed a vesiclular rash that started about 5 days ago. She had been outside working in the [employer]. Review of Systems Constitutional: Negative for fatigue and fever. Skin: Positive for rash. Objective BP 122/89 Pulse 87 Temp 36.3 C (97.4 F) Resp 18 Wt 59.7 kg (131 lb 9.8 oz) LMP 07/30/2023 (Exact Date) SpO2 99% BMI 21.57 kg/m Physical Exam Vitals and nursing note reviewed. Constitutional: General: She is not in acute distress. Appearance: Normal appearance. She is not ill-appearing. HENT: Head: Normocephalic. Eyes: Conjunctiva/sclera: Conjunctivae normal. Pulmonary: Effort: Pulmonary effort is normal. Musculoskeletal: General: Normal range of motion. Cervical back: Normal range of motion. Skin: General: Skin is warm and dry. Findings: Rash present. Comments: Scattered vesicular rash across the palmar aspect of the left forearm and palmar aspect of right wrist. Rash is not erythematous. Neurological: General: No focal deficit present. Mental Status: She is alert. Psychiatric: Mood and Affect: Mood normal. Behavior: Behavior normal. Assessment and Plan ASSESSMENT/PLAN: 1. Poison liam dermatitis - ICD9: 692.6, ICD10: L23.7 - Oral Steriod tx -Prednisone taper - discussed skin care of rash - follow up if symptoms persist or worsen. -Discussed the importance of thoroughly cleaning all clothing that she was wearing while working out in the [employer]. -Patient given a 15-day taper of prednisone. - PREDNISONE 10 MG TABLET Katie Velez APRN.[facility] documented in this encounter [facility] 08-07-2023 Note HNO ID: [id number] Author: JERED BAXTER APRN.CNP Service: ? Author Type: Nurse Practitioner Type: Progress Notes Filed: 08/07/2023 12:35 Note Text: Subjective HPI HPI Rosetta Palacios is a 52 year old female who presents today for CC of itchy tender rash on back. This started 2 weeks ago. Has tried otc medication for relief. Symptoms are worsened by nothing. Risk factors has hottub, does not use frequently but was in recently. Denies uri symptoms. .Patient presents with: Rash: On back x 1 week and worsening small red bumps all over PAST MEDICAL HISTORY Diagnosis Date Abnormal glandular Papanicolaou smear of cervix 1993, 1994 ASCUS PAST SURGICAL HISTORY Procedure Laterality Date ARTHROSCOPY KNEE DIAGNOSTIC W/WO SYNOVIAL BX SPX 2006 Arthroscopy, knee PAST SURGICAL HISTORY OF WISDOM TEETH EXTRACTION ALLERGIES Patient has no known allergies. MEDICATIONS doxycycline monohydrate (MONODOX) 100 mg capsule take 1 capsule by mouth twice a day with food Desogestrel-Ethinyl Estradiol 0.15-0.02 mgx21 /0.01 mg x 5 per tablet Take 1 tablet by mouth once daily. predniSONE (DELTASONE) 10 mg tablet Take 4 tabs daily for 3 days, then 2 tabs daily for 3 days, then 1 tab daily for 3 days with food. triamcinolone acetonide (KENALOG) 0.1 % cream Apply 1 application to affected area three times a day for 10 days. Apply sparingly to area for rash/itching. cephALEXin (KEFLEX) 500 mg capsule Take 1 capsule by mouth three times a day for 7 days. FAMILY HISTORY Problem Relation Age of Onset Hypertension Mother Thyroid Mother Diabetes Mother other (aortic aneurysn) Mother other (diverticulitis) Mother removed part of colon Hypertension Brother Stroke Maternal Grandmother brain aneurysm Hypertension Maternal Grandfather Social History Tobacco Use Smoking status: Never Smokeless tobacco: Never Substance Use Topics Alcohol use: No Drug use: No ROS Objective Blood pressure 120/83, pulse 105, temperature 36.9 ?C (98.5 ?F), resp. rate 18, weight 57 kg (125 lb 10.6 oz), last menstrual period 07/30/2023, SpO2 100%. Physical Exam Constitutional: General: She is not in acute distress. Appearance: She is not toxic-appearing or diaphoretic. HENT: Head: Normocephalic and atraumatic. Pulmonary: Effort: Pulmonary effort is normal. No accessory muscle usage or respiratory distress. Skin: Neurological: Mental Status: She is alert and oriented to person, place, and time. ASSESSMENT/PLAN: 1. Rash - ICD9: 782.1, ICD10: R21 Unclear etiology, cover with steroid and atb F/u with dermatology if s/s persist. - PREDNISONE 10 MG TABLET - TRIAMCINOLONE ACETONIDE 0.1 % TOPICAL CREAM - CEPHALEXIN 500 MG CAPSULE Jered Baxter APRN.BUILD MANAGER [facility] 11-20-2022 Note [facility] Pap Smear Specimen Adequacy November 20, 2022 12:46pm Comment . Satisfactory for evaluation. Endocervical and/or squamous metaplasticcells (endocervical component) are present. Comment on above: Satisfactory for hui luation. Endocervical and/or squamous metaplasticcells (endocervical component) are present. 09-16-2022 Instructions Nguyen Laird APRN.BUILD MANAGER - 09/16/2022 8:54 AM EDT Rest, increase water intake Motrin or Tylenol as needed for fever or pain. Salt water gargles, chloraseptic spray or lozenges as needed for sore throat. Warm beverages, honey. Nasal saline spray as needed Cool mist humidifier at night Tylenol (generic acetaminophen) 500 mg-2 tabs every 8 hrs. as needed for fever and aches Ibuprofen 600 mg (3-200mg tablets) every 6 hours -Sudafed (generic is fine), behind the counter, 2x30 mg tabs twice daily as needed for congestion -Mucinex (generic is fine) Guaifenesin 1200 mg twice daily to help with cough and to thin out mucus While on Prednisone no aleve, advil, motrin ibuprofen, tylenol only * Seek medical care immediately, call 911, go to ER if you have chest pain, difficulty breathing, shortness of breath, inability to swallow. documented [facility] encounter [facility] [facility] 09-16-2022 History of Presen t illness Narrative Subjective The history is provided by the patient. No welding process engineer was used. HPI Rosetta Palacios is a 52 year old female who presents today for CC of headache, sore throat and body aches for 5 days. She has used advil without relief.She denies any known exposure, declines covid testing here will do at home. She had a possible exposure to covid at work. BP 140/82 Pulse 102 Temp 36.2 C (97.1 F) Resp 21 Wt 63.2 kg (139 lb 6.4 oz) LMP 02/18/2016 (Approximate) SpO2 99% BMI 22.84 kg/m Social History Tobacco Use Smoking status: Never Smokeless tobacco: Never Substance Use Topics Alcohol use: No Drug use: No PAST MEDICAL HISTORY Diagnosis Date Abnormal glandular Papanicolaou smear of cervix 1993, 1994 ASCUS I have confirmed and edited as necessary, the [facility] Review of Systems Constitutional: Negative for chills, fever and malaise/fatigue. HENT: Positive for congestion and sore throat. Negative for ear pain and sinus pain. Respiratory: Positive for cough. Negative for sputum production, shortness of breath and wheezing. Cardiovascular: Negative for chest pain. Musculoskeletal: Negative for myalgias. Neurological: Negative for headaches. Objective Physical Exam Vitals and nursing note reviewed. HENT: Head: Normocephalic and atraumatic. Right Ear: Tympanic membrane, ear canal and external ear normal. Left Ear: Tympanic membrane, ear canal and external ear normal. Nose: No mucosal edema, congestion or rhinorrhea. Right Sinus: No maxillary sinus tenderness or frontal sinus tenderness. Left Sinus: No maxillary sinus tenderness or frontal sinus tenderness. Mouth/Throat: Pharynx: Uvula midline. Oropharyngeal exudate and posterior oropharyngeal erythema present. Cardiovascular: Rate and Rhythm: Normal rate and regular rhythm. Heart sounds: Normal heart sounds. Pulmonary: Effort: Pulmonary effort is normal. Breath sounds: Normal breath sounds. Lymphadenopathy: Head: Right side of head: No submental, submandibular or tonsillar adenopathy. Left side of head: No submental, submandibular or tonsillar adenopathy. Cervical: No cervical adenopathy. Skin: General: Skin is warm and dry. Neurological: Mental Status: She is alert. Psychiatric: Mood and Affect: Affect normal. ASSESSMENT/PLAN: 1. Sore throat - ICD9: 462, ICD10: J02.9 (primary diagnosis) - suspect viral Prednisone 40 mg (2-20mg tablets) po QD for 5 days - Alere Strep Test negative, no culture pending - STREP A MOLECULAR (POC) 2. URI, acute - ICD9: 465.9, ICD10: J06.9 - Discussed viral etiology and rationale for treatment. - Symptomatic treatment with prn analgesia - Supportive care with fluids and rest Diagnosis and treatment plan were discussed and questions were answered to the patient's satisfaction. Pt acknowledged understanding of concepts and follow up plan. Specific signs and symptoms that would indicate the need for higher level of care were discussed in detail warranting prompt ER evaluation. Nguyen Laird APRN.MOSHE documented in this encounter [facility] 07-06-2022 History of Presen t illness Narrative Patient presents with: Rash: Mouth and nose x1 month HPI: Rash: Location: left lateral corner of the mouth, left corner of the nose Duration: waxing and waning 1 month. The lesion bumped up again 2 days ago and is improving. Pruritis: a little Change: gets red, dries out, and flakes off Bleeding/ulceration/blister/pustule: never blisters or drains Contacts with rash: No. Her gets cold sores but has not had one for years. She has never had a cold sore before. Exposure: new retinol last month (stopped). No new soaps, detergents, fabric softeners, lotions. Outdoor exposure: No. Change in medications: No. Recent illness: No. Treatment: hydrocortisone cream, daughter's Rx cream for perioral dermatitis. MEDICATIONS: Desogestrel-Ethinyl Estradiol 0.15-0.02 mgx21 /0.01 mg x 5 per tablet Take 1 tablet by mouth once daily. ALLERGIES: ALLERGIES No Known Allergies VITALS: BP 122/76 Pulse 76 Temp 36.2 C (97.1 F) Resp 18 Wt 62.2 kg (137 lb 3.2 oz) LMP 02/18/2016 (Approximate) SpO2 99% BMI 22.48 kg/m PHYSICAL EXAM: GEN: pleasant, no acute distress, alert. Right hand dominant. SKIN: 4mm patches of erythema at the lateral corner of the left nostril and left side of the mouth. There is no ulceration, vesicle, or scale at the nose. There is fine scale and ulceration at the corner of the mouth. ASSESSMENT/PLAN: 1. Rash - ICD9: 782.1, ICD10: R21 Differential includes HSV, impetigo, contact or irritant dermatitis, perioral dermatitis, tinea. - HSV1,2/VZV NAAT LESION. Patient education about HSV provided. Start - MUPIROCIN 2 % TOPICAL OINTMENT, she may discontinue if positive for HSV. She is beyond the window for antiviral treatment. Follow-up with dermatology if not improving. Olvin Cheng MD documented in this encounter [facility] 03-26-2021 History of Presen t illness Narrative Radiology Service Progress Note PATIENT NAME: Rosetta Palacios DATE OF SERVICE: March 26, 2021 TIME: 9:27 AM PATIENT IDENTITY VERIFICATION COMPLETED USING TWO (2) IDENTIFIERS: Name and Date of confirmed by patient verbally. FALL SCREENING: Has the patient had 2 falls in the last year or 1 fall with injury or currently using an Ambulatory Assistive Device (Walker, Cane, Wheelchair, Crutches, etc.)? No PATIENT GENDER DATA: Female. status: : No status: NO. PATIENT RELEVANT IMPLANT DATA REVIEWED: Not Applicable RADIOLOGY DEPARTMENT: General X-ray: Exam(s) Completed: Spine X-Ray(s): Sacrum/Coccyx PERIPHERAL IV DATA: Not applicable SIGNED BY: RT Mikie(R) March 26, 2021 9:27 AM documented in this encounter [facility] Evaluation note Diagnosis Onset Date History of galactorrhea acut e Menorrhagia with irregular cycle acute [facility] Work Phone: Evaluation note* Diagnosis Rash- Primary Rash and other nonspecific skin eruption documented in this encounter [facility] note* Diagnosis Sore throat- Primary Acute pharyngitis URI, acute Acute upper respiratory infections of unspecified site documented in this encounter [facility] note* Diagnosis Onset Date Resolution Status Encounter for routine gynecological examination noneactive Abnormal uterine bleeding (AUB) noneactive [facility] Work Phone: Evaluation note* Diagnosis Poison liam dermatitis- Primary Contact dermatitis and other eczema due to plants (except food) [facility] Diagnosis Fall, initial encounter Coccyx pain Other disorder of coccyx documented in this encounter [facility] note* Diagnosis Sore throat- Primary Acute pharyngitis Viral pharyngitis Acute pharyngitis documented in this encounter [facility] Discharge instructionsAmbulatory Orders* General Surgery Location: None Selected [facility] Work Phone: Reason for referral (narrative)* Diagnostic Procedure Only (Urgent) - Closed Specialty Diagnoses / Procedures Referred By Anita rose Referred To Contact XR IMAGING Diagnoses Fall, initial encounter Coccyx pain Procedures XR SACRUM/COCCYX 3V AP/LAT X-RAY SACRUM/COCCYX 2+ VW Nguyen Laird APRN.BUILD MANAGER [id number] [place] [address] [place] [id number] Referral ID Status Reason Start Date Expiration Date V isits Requested Visits Authorized [id number] Closed Auto-Generate d Referral 03/26/2021 04/25/2022 [address] [facility] for visit Narrative* Diagnostic Procedure Only (Urgent) - Closed Specialty Diagnoses / Procedures Referred By Contac t Referred To Contact XR IMAGING Diagnoses Fall, initial encounter Coccyx pain Procedures XR SACRUM/COCCYX 3V AP/LAT X-RAY SACRUM/COCCYX 2+ VW Nguyen Laird, RN PARALEGAL.BUILD MANAGER [id number] [facility] [place] [address] [place] [id number] Referral ID Status Reason Start Date Expiration Date V isits Requested Visits Authorized [id number] Closed Auto-Generate d Referral 03/26/2021 04/25/2022 1 1 [facility] Chief Complaint and Reason for Visit Chief Complaint COVID TEST DRIVE THR U COVID TEST DRIVE THRU SCREENING ABNORMAL MAMM 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) Reason for Visit History of galactorr hea Menorrhagia with irregular cycle Chief Complaint SCREENING 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) Reason for Visit Encounter for routin e gynecological examination Abnormal uterine bleeding (AUB) Summary Purpose Family History No Family History Records Found Advance Directives No Advanced Directives Records FoundNo Advanced Directives Records Found Additional Source Comments Goals (unrecognized section and content) Goals may be documented in a n alternate sectionGoals may be documented in an alternate sectionGoals may be documented in an alternate section Source Comments (unrecognize d section and content) In the event this informatio n is protected by the Federal Confidentiality of Alcohol and Drug Abuse Patient Records regulations: The Federal rules restrict any use of the information to criminally investigate or prosecute any alcohol or drug abuse patient.[facility] the event this information is protected by the Federal Confidentiality of Alcohol and Drug Abuse Patient Records regulations: The Federal rules restrict any use of the information to criminally investigate or prosecute any alcohol or drug abuse patient.[facility] the event this information is protected by the Federal Confidentiality of Alcohol and Drug Abuse Patient Records regulations: The Federal rules restrict any use of the information to criminally investigate or prosecute any alcohol or drug abuse patient.[facility] the event this information is protected by the Federal Confidentiality of Alcohol and Drug Abuse Patient Records regulations: The Federal rules restrict any use of the information to criminally investigate or prosecute any alcohol or drug abuse patient.[facility] the event this information is protected by the Federal Confidentiality of Alcohol and Drug Abuse Patient Records regulations: The Federal rules restrict any use of the information to criminally investigate or prosecute any alcohol or drug abuse patient.[facility] Reason for Visit (unrecogniz ed section and content) Reason Comments Rash Mouth and nose x1 mo nth Reason Comments Sore Throat SAUCEDA, body aches, coug h, left ear pain x 5 days Reason Comments Rash Widespread x4 days, possible poison liam Reason Comments Sore Throat Bodyaches, SAUCEDA, cough x4 days Care Teams (unrecognized sec tion and content) Team Status: Active Member Role Status Dates No Primary Care Physician Family Provider Active Dr. Calixto Dexter MD Primary Care Provider Acti ve Team Status: Inactive Member Role Status Dates Dr. Calixto Dexter MD Primary Care Provider, Ref erring Provider Active Shu Birch LEAD PONY RIDER, LEAD PONY RIDER-C Attending Provider Active Team Status: Inactive Member Role Status Dates Dr. Calixto Dexter MD Primary Care Provider Acti ve Shu Birch LEAD PONY RIDER, LEAD PONY RIDER-C Attending Provider, Referring Provider Active Team Status: Active Member Role Status Dates Dr. Calixto Dexter MD Primary Care Provider Acti ve Shu Birch LEAD PONY RIDER, LEAD PONY RIDER-C Attending Provider, Referring Provider Active INFORMATION SOURCE (unrecogn ized section and content) DATE CREATED AUTHOR 03/06/2024 [facility] DATE CREATED AUTHOR AUTHOR'S ORGANIZ ATION 11/28/2024 [facility] FOR RECORDS PERTAINING TO PATIENTS WHO ARE OR HAVE BEEN ENROLLED IN A CHEMICAL DEPENDENCY/SUBSTANCEABUSE PROGRAM, SOME INFORMATION MAY BE OMITTED. This clinical summary was aggregated from multiple sources. Caution should be exercised in using it in the provision of clinical care. This summary normalizes information from multiple sources, and as a consequence, information in this document may materially change the coding, format and clinical context of patient data. In addition, data may be omitted in some cases. CLINICAL DECISIONS SHOULD BE BASED ON THE PRIMARY CLINICAL RECORDS. [facility]. provides no warranty or guarantee of the accuracy or completeness of information in this document.
== END | disposition home or self-care (01) ==
PROVIDERS: PCP Family Medicine; Referring Provider Nurse Practitioner Women's Health; Visit Provider Nurse Practitioner Women's Health
DX: Z12.31 Encounter for screening mammogram for malignant neoplasm of breast (principal)
CPT/HCPCS: 77063; 77067